=== PATIENT | female | born 1940 | race Caucasian/White ===

== ENCOUNTER 2017-06-03 10:36 | Outpatient (CLI) | payer MEDICARE, OTHER ==
--- NOTE | 2017-06-03 14:56 | ULT ---
RENAL SONOGRAM 06/03/2017 HISTORY: Urinary tract infection, acute cystitis, urinary hesitancy. FINDINGS: The kidneys demonstrate a normal sonographic appearance bilaterally without evidence of renal mass, calculus, or hydronephrosis. The right kidney measures 9.5 cm x 3.3 cm, with the left kidney measuring 9.9 cm x 4.2 cm. Urinary bladder has a normal sonographic appearance. Urinary bladder volume is 100.9 mL. IMPRESSION: Normal-appearing bilateral kidneys without evidence of hydronephrosis. POS: CELESTINOH
== END 2017-06-03 10:37 | disposition home or self-care (01) ==
LOC: ULT 10:36
PROVIDERS: ATTEND Urology
DX: N30.00 Acute cystitis without hematuria (principal); R39.11 Hesitancy of micturition; Z87.440 Personal history of urinary (tract) infections
CPT/HCPCS: 76770

== ENCOUNTER 2017-09-23 15:12 | Outpatient (CLI) | payer MEDICARE ==
--- NOTE | 2017-09-23 15:37 | RAD ---
CHEST PA AND LATERAL: History: 77-year-old female with dyspnea. Comparison: 11-19-16 FINDINGS: Heart size is within normal limits. Post underlying sternotomy. Scattered interstitial linear and ret icular nodular parenchymal changes in the upper lung zones with some apical pleural thickening as wel l as in the lower lung zones with some scarring in the region of the right middle lobe. There is some hyperinflation and overall stable chronic changes. IMPRESSION: Hyperinflation and chronic lung changes bilaterally. Atherosclerosis of the aorta with ectasia. No ev idence for acute new process. POS: OFF
== END 2017-09-23 15:13 | disposition home or self-care (01) ==
LOC: RAD 15:12
PROVIDERS: ATTEND Internal Medicine Pulmonary Disease
DX: R06.00 Dyspnea, unspecified (principal); R91.8 Other nonspecific abnormal finding of lung field; I70.0 Atherosclerosis of aorta; I77.819 Aortic ectasia, unspecified site
CPT/HCPCS: 71046

== ENCOUNTER 2017-11-06 13:47 | Outpatient (CLI) | payer MEDICARE | END 2017-11-06 13:48 | disposition home or self-care (01) | LOC: BICRAD 13:47 | PROVIDERS: ATTEND Internal Medicine | DX: R06.02 Shortness of breath; R05 Cough | CPT/HCPCS: 71046 ==

== ENCOUNTER 2017-11-28 12:40 | Outpatient (CLI) | payer MEDICARE ==
--- NOTE | 2017-11-28 13:37 | RAD ---
PA AND LATERAL VIEWS CHEST: Date: 11/28/17 HISTORY: Dyspnea. FINDINGS: Comparison made with exam of 09/23/17. Changes of median sternotomy are again seen. The heart size is normal. The aorta is tortuous. The pepe gs are expanded with stable chronic changes. No focal areas of consolidation, pneumothorax, or pleura l effusions are noted. There are degenerative changes in the spine. IMPRESSION: Stable exam. No acute process. POS: C
== END 2017-11-28 12:41 | disposition home or self-care (01) ==
LOC: RAD 12:40
PROVIDERS: ATTEND Internal Medicine Pulmonary Disease
DX: R06.00 Dyspnea, unspecified (principal)
CPT/HCPCS: 71046

== ENCOUNTER 2018-02-13 07:19 | Outpatient (CLI) | payer MEDICARE | END 2018-02-13 07:20 | disposition home or self-care (01) | LOC: BICULT 07:19 | PROVIDERS: ATTEND Internal Medicine Gastroenterology | DX: K74.3 Primary biliary cirrhosis (principal); K59.00 Constipation, unspecified; R63.4 Abnormal weight loss; R14.3 Flatulence | CPT/HCPCS: 76705 ==

== ENCOUNTER 2018-02-13 08:00 | Outpatient (CLI) | payer MEDICARE | END 2018-02-13 08:01 | disposition home or self-care (01) | LOC: BICMAMMO 08:00 | PROVIDERS: ATTEND Internal Medicine | DX: Z12.31 Encounter for screening mammogram for malignant neoplasm of breast (principal); N64.89 Other specified disorders of breast | CPT/HCPCS: 77063; 77067 ==

== ENCOUNTER 2018-02-19 09:36 | Outpatient (CLI) | payer MEDICARE ==
[2018-02-19] MEDS ORDERED: Iopamidol 370 76% 100 ML VIAL ONE (12:53)
[2018-02-21 15:07] LABS: Estimated GFR-MDRD - POC Greater than 90
== END 2018-02-19 09:37 | disposition home or self-care (01) ==
LOC: BICCT 09:36
PROVIDERS: ATTEND Internal Medicine Gastroenterology
DX: K74.3 Primary biliary cirrhosis (principal); R63.4 Abnormal weight loss; K59.00 Constipation, unspecified; R14.3 Flatulence
CPT/HCPCS: 74177; 82565

== ENCOUNTER 2018-02-20 13:36 | Outpatient (CLI) | payer MEDICARE | END 2018-02-20 13:37 | disposition home or self-care (01) | LOC: BICMAMMO 13:36 | PROVIDERS: ATTEND Internal Medicine | DX: N64.89 Other specified disorders of breast (principal) | CPT/HCPCS: 77065; G0279 ==

== ENCOUNTER 2018-03-05 14:21 | Outpatient (CLI) | payer MEDICARE | END 2018-03-05 14:22 | disposition home or self-care (01) | LOC: BICRAD 14:21 | PROVIDERS: ATTEND Internal Medicine | DX: R63.4 Abnormal weight loss (principal); I70.0 Atherosclerosis of aorta; J98.4 Other disorders of lung | CPT/HCPCS: 71046 ==

== ENCOUNTER 2018-05-30 16:39 | Inpatient (IN) | payer MEDICARE, OTHER ==
--- NOTE | 2018-05-30 17:44 | CT ---
CT BRAIN WITHOUT CONTRAST: Date: 05/30/18 HISTORY: Trauma. Fall. COMPARISON: None. FINDINGS: Right frontal forehead superficial soft tissue contusion. No acute hemorrhage or infarct. No midline shift or mass effect. The underlying calvarium is intact. Prior maxillary sinus surgery. IMPRESSION: Right forehead soft tissue contusion without acute post-traumatic intracranial sequelae. POS: CASEY
--- NOTE | 2018-05-30 17:49 | CT ---
CT CERVICAL SPINE WITHOUT CONTRAST: Date: 05/30/18 HISTORY: Trauma. COMPARISON: None. FINDINGS: The occipital condyles are intact. Odontoid process is intact. There are innumerable small little kalie encies throughout the medullary cavity of the cervical spine. There is a fusion of the right posterio r elements of C4-5. No acute fracture or malalignment. Low grade anterolisthesis of C4 over C5, degenerative in nature. There is abnormal peribronchial thickening in the upper lobes. There are opacities in both upper lobe s. No paraspinal muscle hematoma. Subtle very small lucencies through the ribs are visualized. IMPRESSION: 1. No acute displaced fracture of the cervical spine. 2. Innumerable small lucencies throughout the cervical vertebra, as well as involving the ribs. This can be seen with myelomatous process. Nonemergent myeloma workup is recommended. 3. Moderately advanced degenerative changes. 4. Extensive opacities in the upper lobes with peribronchial vascular cuffing, as well as peribronch ial wall thickening. This may be sequelae of chronic infection or bronchitis. A nonemergent CT of the chest is recommended. Atypical infection is also a possibility. POS: CASEY
--- NOTE | 2018-05-30 17:52 | CT ---
CT FACE WITHOUT CONTRAST: Date: 05/30/18 HISTORY: Fall. COMPARISON: None. FINDINGS: Superficial right forehead soft tissue contusion. Underlying calvarium is intact. The medial orbital persaud, lateral orbital persaud, orbital floors, and orbital roofs are intact. The zygoma and zygomatic arch are intact. Chronic maxillary osteitis. Nasal bones are intact. Moderate degenerative changes of the temporomandibular joints. The mandible is intact. No retrobulbar hematoma. There are numerous lucencies throughout the clivus. IMPRESSION: 1. No acute fracture of the face. 2. Right forehead superficial soft tissue contusion. Intact calvarium. 3. Extensive numerous lucencies throughout the clivus. This may be sequelae of severe osteopenia, al though an infiltrative process such as myeloma is a possibility. Nonemergent outpatient myeloma marilyn p recommended. POS: [facility]
--- NOTE | 2018-05-30 17:55 | RAD ---
PELVIS 1 VIEW: Date: 05/30/18 HISTORY: Fall. COMPARISON: None. FINDINGS: No fracture. No malalignment. Moderate degenerative changes. IMPRESSION: No acute fracture or malalignment. POS: CASEY
--- NOTE | 2018-05-30 17:56 | RAD ---
LEFT TIBIA AND FIBULA 2 VIEWS: Date: 05/30/18 HISTORY: Fall. COMPARISON: None. FINDINGS: There is mild soft tissue swelling. Multiple surgical clips. Mild medial meniscal chondrocalcinosis. IMPRESSION: No acute abnormality. POS: CASEY
[2018-05-30 18:24] LABS: Bilirubin Negative (Negative); Blood, Urine Small (Negative); Clarity CLOUDY (Clear); Glucose, Urine (Dipstick) Negative (Negative); Leukocyte Moderate (Negative); Nitrite Positive (Negative); Protein, Urine (Dipstick) Negative (Neg-Trace); Specific Gravity, Urine 1.016 (1.002-1.036); Urobilinogen 0.2 mg/dL (0.2-1.0); pH, Urine 6.5 (5.0-9.0)
[2018-05-30 18:26] LABS: Bacteria/HPF 2+ HPF (None Seen); Pathc Cast-AUWi Flag 2.18 (0-2.49); RBC/HPF 0-3 HPF (0-3); Squamous Epithelial 0-3 HPF (0-3)
[2018-05-30 18:58] LABS: #Lymphocytes 1.7 thou/uL (1.20-3.40); #Monocytes 0.9 thou/uL (0.11-0.59); #Neutrophils 13.7 thou/uL (1.40-6.50); %Basophils 0.3 % (0.0-1.0); %Eosinophils 0.2 % (0.0-10.0); %Lymphocytes 10.1 % (21.0-51.0); %Monocytes 5.6 % (0.0-10.0); %Neutrophils 83.8 % (42.0-75.0); Hemoglobin 12.7 g/dL (12.0-16.0); Mean Corpuscular HGB CONC 31.6 g/dL (32.0-36.0); Mean Corpuscular Hemoglobin 27.6 pg (27.0-31.0); Mean Corpuscular Volume 87.5 fL (78.0-98.0); Mean Platelet Volume 6.2 fL (7.4-10.4); Platelet Count 387 thou/uL (130-400); Red Blood Cell (RBC) Count 4.61 mill/uL (4.20-5.40); White Blood Cell (WBC) Count 16.4 thou/uL (4.8-10.8)
[2018-05-30 19:11] LABS: ALT (SGPT) 17 U/L (8-55); AST (SGOT) 35 U/L (5-34); Albumin 3.8 g/dL (3.4-4.8); Alkaline Phosphatase 133 U/L (40-150); Anion Gap 15 mmol/L (10-20); BUN (Urea Nitrogen) 13 mg/dL (9.8-20.1); Bilirubin, Total 0.4 mg/dL (0.2-1.2); Calc. Creatinine Clearance 0 mL/min (70-130); Calcium 9.9 mg/dL (7.8-10.44); Carbon Dioxide 24 mmol/L (23-31); Chloride 98 mmol/L (98-107); Estimated GFR-MDRD 73; Globulin 3.2 g/dL (2.4-3.5); Glucose 103 mg/dL (83-110); Potassium 4.5 mmol/L (3.5-5.1); Sodium 132 mmol/L (136-145)
[2018-05-30 19:24] LABS: CKMB 13.5 ng/mL (0-6.6); Troponin I 1.094 ng/mL (< 0.028)
[2018-05-30] MEDS ORDERED: cefTRIAXone\\ROCEPHIN 2 GM VIAL ONE (19:29)
[2018-05-30] MEDS ORDERED: Aspirin 325 MG TAB ONE (19:51)
[2018-05-30 22:41] LABS: Troponin I 2.287 ng/mL (< 0.028)
[2018-05-30] MEDS ORDERED: Acetaminophen 500 MG TAB PO PRN ×2 (23:19→23:51)
[2018-05-30] MEDS ORDERED: Enoxaparin Sodium 60 MG/0.6 ML SYRINGE SC SCH (23:30)
[2018-05-30] MEDS ORDERED: Nitroglycerin 0.4 MG TAB (25 Tab Bottle) SL PRN (23:51)
[2018-05-30] MEDS ORDERED: Ondansetron PF 4 MG/2 ML Vial IVP PRN (23:51)
[2018-05-30] MEDS ORDERED: Ondansetron ODT 4 MG TAB PO PRN (23:51)
[2018-05-30] MEDS ORDERED: hydrALAZINE 20 MG/ML VIAL SLOW IVP PRN (23:51)
--- NOTE | 2018-05-31 02:38 | HP ---
DATE OF ADMISSION: 05/30/2018 PRIMARY CARE PROVIDER: Dr. Zack Carlson. CHIEF COMPLAINT: Fall. HISTORY OF PRESENT ILLNESS: This is a 78-year-old female who presented to [facility] Emergency Department after sustaining a fall at home. The patient states she was navigating with using her rolling walker when it became hung between the doorway of her bathroom, causing her to fal l. The patient states she struck her forehead on the floor and landed face down. The patient states she was unable to get off the floor after multiple attempts. The patient's sister apparently had a welfare check for her and found her on the floor notifying EMS personnel. The patient relates she almendarez d a recent fall approximately 4-5 days prior to this evaluation while attempting to navigate down to a tree limb in her yard. The patient does states she uses a rolling walker for ambulation and lives independently; however, her daughter does live nearby and her sister lives in [place], [place]. The pat ient initially complained of left hip pain; however, initial radiographs in the emergency room were u nremarkable. The patient denies any specific loss of consciousness, fever, chills, or chest pain. I n the emergency room, the patient underwent general evaluation including CT of the brain, showing no acute intracranial process. Metabolic screening which did show evidence of potential urinary tract i nfection and patient was also noted with increasing trend of troponin I suggestive of non-ST elevatio n myocardial infarction. The patient received IV Rocephin, aspirin 325 mg in the emergency room and was transferred to the telemetry unit for further evaluation. PAST MEDICAL HISTORY: 1. History of non-ST elevation myocardial infarction. 2. History of pneumonia. 3. Coronary artery disease, status post coronary artery bypass grafting. 4. Dyslipidemia. 5. Hypothyroidism. 6. Irritable bowel syndrome. 7. Deconditioning with multiple falls. PAST SURGICAL HISTORY: 1. Status post sinus surgery. 2. Status post coronary artery bypass grafting x2. 3. Status post hysterectomy. 4. Status post left finger surgery. 5. Status post spinal surgery. CURRENT MEDICATIONS: 1. Aspirin 81 mg 1 tab p.o. daily. 2. Protonix 40 mg p.o. daily. 3. MiraLax 17 grams p.o. daily. 4. Flomax 0.4 mg p.o. daily. 5. [place] thyroid 120 mg p.o. daily. 6. Ursodiol 300 mg 2-3 capsules p.o. daily. ALLERGIES: STATINS and SULFA. FAMILY HISTORY: No inheritable diseases per patient report. SOCIAL HISTORY: Patient resides independently in the [place], [place] area. Ambulates with use of rolli Novalux walker. Multiple falls. No current alcohol, tobacco, or illicit drug use. REVIEW OF SYSTEMS: The following complete review of systems was negative, unless otherwise mentioned in the HPI or below: Constitutional: Weight loss or gain, ability to conduct usual activities. Sk in: Rash, itching. Eyes: Double vision, pain. ENT/Mouth: Nose bleeding, neck stiffness, pain, te nderness. Cardiovascular: Palpitations, dyspnea on exertion, orthopnea. Respiratory: Shortness of breath, wheezing, cough, hemoptysis, fever or night sweats. Gastrointestinal: Poor appetite, abdom inal pain, heartburn, nausea, vomiting, constipation, or diarrhea. Genitourinary: Urgency, frequenc y, dysuria, nocturia. Musculoskeletal: Pain, swelling. Neurologic/Psychiatric: Anxiety, depressio n. Allergy/Immunologic: Skin rash, bleeding tendency. PHYSICAL EXAMINATION: VITAL SIGNS: On admission, blood pressure 108/60, pulse 71, respiratory rate 14, temperature 98.6 de grees Fahrenheit, O2 saturation 98% on room air. GENERAL APPEARANCE: This is a 78-year-old female, alert and responsive, in no acute distre ss. HEENT: Pupils are equal, round, and reactive to light and accommodation. Extraocular muscles are in tact. No scleral icterus, no conjunctival injection. Nares patent. OP is clear. Forehead region w ith ecchymosis and erythema consistent with contusion. NECK: Supple. No cervical adenopathy, no thyromegaly, no carotid bruits, no JVD noted. Cervical sp ine with full active and passive range of motion. No meningeal signs noted. CHEST: Lungs are clear to auscultation bilaterally. CARDIOVASCULAR: S1, S2, without noted murmur, rub, or gallop. ABDOMEN: Rounded, soft, nontender, nondistended. Bowel sounds are positive in all four quadrants. There is no hepatosplenomegaly, no abdominal bruits, no rebound or guarding appreciated. EXTREMITIES: Warm and dry with fair turgor. Contusion noted in the left patella. Pulses are palpab le distally at the dorsalis pedis, posterior tibial, and popliteal arteries bilaterally. Capillary r efill less than 2 seconds. NEUROLOGIC: Cranial nerves II through XII are grossly intact. No focal or lateralizing signs apprec iated. The patient not observed ambulatory during this exam. PERTINENT LABORATORY AND X-RAY FINDINGS: Sodium 132, potassium 4.5, chloride 98, CO2 of 24, BUN 13, creatinine 0.77, glucose 103, calcium 9.9, AST 35, ALT 17, alkaline phosphatase 133, troponin I range d between 1.094-2.29. CBC showed a white blood cell count of 16.4, hemoglobin 13, hematocrit 40, maria del rosario telet count 387,000 with 84% neutrophils. Urinalysis positive for nitrites and leukocyte esterase wi th 7-10 wbc's per high power field. CT of cervical spine dated 05/30/2018, showed no acute fracture or dislocation. Innumerable small lucencies throughout the cervical vertebra. Degenerative joint di sease noted. CT of the facial bones dated 05/30/2018, showed no acute fracture of the face. Right f orehead soft tissue contusion. Pelvic radiographs dated 05/30/2018, showed no acute fracture. Two v iews of the left tibia/fibula dated 05/30/2018, showed no acute fracture. CT of the brain without co ntrast dated 05/30/2018, showed no acute intracranial process. EKG dated 05/30/2018 by my interpreta tilakesha shows a sinus mechanism with heart rates in the 70s. Normal R-wave progression noted in the pre cordial leads. Normal axis. No acute ST-T wave changes noted. ASSESSMENT AND PLAN: 1. Non-ST elevation myocardial infarction. The patient will be admitted to the telemetry unit. We will continue aspirin 325 mg p.o. daily. Lovenox 60 mg subcutaneously x1. Consult Cardiology Servic e in the a.m. Check fasting lipid profile. 2. Urinary tract infection. Suspected given initial urinalysis results. Urine culture pending. Co ntinue Rocephin 1 gram IV q.24 hours. 3. Mechanical fall. General fall risk precautions. PT evaluation for functional assessment. Case management consult for [facility] facility options. 4. Hypothyroidism. Resume home regimen of [place] thyroid 120 mg p.o. daily. 5. Prophylaxis. Sequential compression devices while in bed. Pepcid 20 mg p.o. b.i.d. PT evaluati on pending. 6. Code status is FULL. Surrogate medical decision maker is the patient's daughter.
[2018-05-31 02:42] LABS: Troponin I 2.963 ng/mL (< 0.028)
[2018-05-31 06:04] LABS: Anion Gap 14 mmol/L (10-20); BUN (Urea Nitrogen) 13 mg/dL (9.8-20.1); Calc. Creatinine Clearance 59 mL/min (70-130); Calcium 9.5 mg/dL (7.8-10.44); Carbon Dioxide 23 mmol/L (23-31); Cardiac Risk 2.8 (Less than 4.5); Chloride 100 mmol/L (98-107); Cholesterol 148 mg/dl (< 200 Desired); Estimated GFR-MDRD 72; Glucose 118 mg/dL (83-110); HDL Cholesterol 53 mg/dL (>60 Neg Risk); LDL Cholesterol, Calculated 86 mg/dL; Potassium 3.7 mmol/L (3.5-5.1); Sodium 133 mmol/L (136-145); Triglycerides 45 mg/dL (Less than 150)
[2018-05-31] MEDS: Thyroid 60 MG TAB PO SCH (06:19)
[2018-05-31 06:22] LABS: Band 7 % (5-11); Hemoglobin 10.8 g/dL (12.0-16.0); Lymphocytes 27 % (21-51); MDiff Complete? YES; Mean Corpuscular HGB CONC 30.9 g/dL (32.0-36.0); Mean Corpuscular Hemoglobin 26.9 pg (27.0-31.0); Mean Corpuscular Volume 87.1 fL (78.0-98.0); Mean Platelet Volume 7.2 fL (7.4-10.4); Monocytes 6 % (0-10); Neutrophil 60 % (42-75); Platelet Count 345 thou/uL (130-400); Red Blood Cell (RBC) Count 4.02 mill/uL (4.20-5.40); White Blood Cell (WBC) Count 12.2 thou/uL (4.8-10.8)
[2018-05-31 10:25] LABS: Platelet Count 325 thou/uL (130-400)
[2018-05-31] MEDS: traMADol HCl 50 MG TAB PO PRN ×2 (11:53→20:21)
[2018-05-31] MEDS: Famotidine 20 MG TAB PO SCH ×2 (14:31→20:21)
[2018-05-31] MEDS: Ursodiol 300 MG CAP PO SCH (15:40)
[2018-05-31] MEDS: Enoxaparin Sodium 60 MG/0.6 ML SYRINGE SC SCH ×2 (15:41→20:24)
[2018-05-31] MEDS: Aspirin 325 mg Enteric Coated Tablet PO SCH (15:41)
[2018-05-31] MEDS: Tamsulosin HCl 0.4 MG CAP PO SCH (15:41)
[2018-05-31] MEDS: Polyethylene Glycol 3350 17 GM Packet PO SCH (15:50)
--- NOTE | 2018-05-31 17:24 | PDOC.PN ---
- Subjective Encounter Start Date: 05/31/18 Encounter Start Time: 10:00 Subjective: pt up in bed wants to eat - Objective Resuscitation Status: Resuscitation Status FULL:Full Resuscitation Vital Signs & Weight: Vital Signs (12 hours) Temp Pulse Resp BP Pulse Ox 05/31/18 15:55 98.4 F 78 17 123/66 98 05/31/18 11:59 97.9 F 58 L 18 145/66 H 99 05/31/18 08:17 98.1 F 57 L 17 121/58 L 98 Weight Admit Weight 134 lb Weight 134 lb 0.657 oz I&O: 05/30/18 05/31/18 06/01/18 06:59 06:59 06:59 Intake Total 350 Output Total 325 Balance 25 Result Diagrams: 05/31/18 09:50 05/31/18 09:50 Phys Exam - Physical Examination Respiratory: no wheezing, no rales, no rhonchi, wheezing present, clear to auscultation bilateral Cardiovascular: RRR, no significant murmur, no rub, gallop, irregular Gastrointestinal: soft, non-tender, no distention, positive bowel sounds Musculoskeletal: no edema, pulses present, edema present Dx/Plan (1) NSTEMI (non-ST elevated myocardial infarction) Code(s): I21.4 - NON-ST ELEVATION (NSTEMI) MYOCARDIAL INFARCTION Status: Suspected (2) Fall Code(s): W19.XXXA - UNSPECIFIED FALL, INITIAL ENCOUNTER Status: Acute (3) Hypertension Code(s): I10 - ESSENTIAL (PRIMARY) HYPERTENSION Status: Acute (4) Hypothyroid Code(s): E03.9 - HYPOTHYROIDISM, UNSPECIFIED Status: Chronic - Plan pt has no chest pain but her trops are high -: will continue lovonox -: cardiology consulted * . Review of Systems - Review of Systems ENT: negative: Ear Pain, Ear Discharge, Nose Pain, Nose Discharge, Nose Congestion, Mouth Pain, Mouth Swelling, Throat Pain, Throat Swelling, Other Respiratory: negative: Cough, Dry, Shortness of Breath, Hemoptysis, SOB with Excertion, Pleuritic Pain, Sputum, Wheezing Cardiovascular: negative: chest pain, palpitations, orthopnea, paroxysmal nocturnal dyspnea, edema, light headedness, other Gastrointestinal: negative: Nausea, Vomiting, Abdominal Pain, Diarrhea, Constipation, Melena, Hematochezia, Other - Medications/Allergies Allergies/Adverse Reactions: Allergies Allergy/AdvReac Type Severity Reaction Status Date / Time Rfaxcpt-Yvg-Kas Reductase Allergy Verified 11/27/13 12:08 Inhibitor Sulfa (Sulfonamide Allergy Hives Verified 11/27/13 12:08 Antibiotics) Medications: Current Medications Acetaminophen (Tylenol) 1,000 mg PO Q6H PRN PRN Reason: Mild Pain (1-3) Last Admin: 05/31/18 06:19 Dose: 1,000 mg Aspirin (Ecotrin) 325 mg PO DAILY [facility] Last Admin: 05/31/18 15:41 Dose: 325 mg Enoxaparin Sodium (Lovenox) 60 mg SC 0900,2100 [facility] Last Admin: 05/31/18 15:41 Dose: 60 mg Famotidine (Pepcid) 20 mg PO BID [facility] Last Admin: 05/31/18 14:31 Dose: Not Given Hydralazine HCl (Apresoline) 10 mg SLOW IVP Q4H PRN PRN Reason: SBP > 180 and HR < 70 Ceftriaxone Sodium 1 gm/ (Sodium Chloride) 100 mls @ 200 mls/hr IVPB 2100 [facility] Nitroglycerin (Nitrostat) 0.4 mg SL Q5MIN PRN PRN Reason: Chest Pain Ondansetron HCl (Zofran Odt) 4 mg PO Q6H PRN PRN Reason: Nausea/Vomiting Ondansetron HCl (Zofran) 4 mg IVP Q6H PRN PRN Reason: Nausea/Vomiting Polyethylene Glycol (Miralax) 17 gm PO DAILY [facility] Last Admin: 05/31/18 15:50 Dose: Not Given Tamsulosin HCl (Flomax) 0.4 mg PO DAILY [facility] Last Admin: 05/31/18 15:41 Dose: 0.4 mg Thyroid ([place] Thyroid) 120 mg PO 0600 [facility] Last Admin: 05/31/18 06:19 Dose: 120 mg Tramadol HCl (Ultram) 50 mg PO Q6H PRN PRN Reason: Mild-Moderate Pain (1-5) Last Admin: 05/31/18 11:53 Dose: 50 mg Ursodiol (Actigal) 600 mg PO DAILY [facility] Last Admin: 05/31/18 15:40 Dose: 600 mg
[2018-05-31] MEDS: cefTRIAXone\\ROCEPHIN 1 GM in Sodium Chloride 0.9% 100 ML IVPB SCH (20:23)
--- NOTE | 2018-06-01 00:22 | CON ---
DATE OF CONSULTATION: 05/31/2018 HISTORY OF PRESENT ILLNESS: Charlotte Negro is a 78-year-old white female who is followed with Dr. Mcrae for many years. In 12/2001, she underwent off pump CABG x2 with SCHULTZ to the LAD and saphenous vein graft to the ramus at [facility]. In 12/2013, she underwent repeat catheterization. There was a 90% mid LAD lesion, 90% lesion in obtuse marginal and 40% ostial lesion of the right coronary artery. The graft to the ramus was patent and the SCHULTZ to the LAD was patent. In 07/2016, she was admitted with pneumonia and had intermittent atrial fibrillation as well as troponin I is up to 0.4. She was last seen in the office in 01/2018, complained of palpitations. It was recommended that she wear an event monitor; however, she declined. She also declined repeat stress testing. In the past, she has also declined anticoagulation. She is now hospitalized after sustaining a fall at home yesterday. She states she got tripped on her clothes after getting up from going to the bathroom with her walker. She apparently fell forward striking her forehead on the floor. She also states that she struck the left side of her chest. She denies any loss of consciousness. She did have elevated troponin I and Cardiology consultation was requested. PAST MEDICAL HISTORY: History of pneumonia with atrial fibrillation, coronary artery disease, hyperlipidemia, hypothyroidism, irritable bowel syndrome, falls in the past. OPERATIONS: Sinus surgery, hysterectomy, left finger surgery, back surgery, and CABG x2. Repeat catheterization in 12/2013 revealed grafts to be patent. MEDICATIONS: Aspirin 81 daily, Protonix 40 daily, MiraLax 17 daily, Flomax 0.4 daily, [place] thyroid 120 mg daily, Actigall 2-3 capsules daily. ALLERGIES: STATINS and SULFA DRUGS. SOCIAL HISTORY: She does not smoke or drink. She states she can be moving to [place] soon. FAMILY HISTORY: Unremarkable. REVIEW OF SYSTEMS: Twelve-point review of systems otherwise unremarkable. PHYSICAL EXAMINATION: VITAL SIGNS: Blood pressure 123/66, pulse of 78. HEENT: PERRL. NECK: Supple. LUNGS: Chest is clear. CARDIAC: S1, S2 normal, without any S3, S4 or murmurs. ABDOMEN: Normal bowel sounds, without tenderness, organomegaly. EXTREMITIES: Revealed no clubbing, cyanosis or edema. NEUROLOGIC: Grossly intact. SKIN: Warm and dry. MUSCULOSKELETAL: Reveals palpable left chest tenderness. LABORATORY DATA: EKG revealed normal sinus rhythm with nonspecific T-wave changes. Troponin I is up to 2.963. Cholesterol 148, triglycerides 45, HDL 53 , LDL 86. TSH is elevated at 8.6089. Sodium 133, potassium 3.7, chloride 100, carbon dioxide 23, BUN 13, creatinine 0.78. CK-MB 13.5. Total CK 167. Hemoglobin 12.0, hematocrit 37.6, platelets 325,000. Echocardiogram revealed ejection fraction of 55%-60%, evidence of diastolic dysfunction, mitral annular calcification, mild mitral regurgitation, aortic valvular sclerosis and mild tricuspid regurgitation. IMPRESSION: 1. Fall at home with previous falls. 2. Elevated troponin I. From the location that she landed on the left side of her chest, certainly could be due to a myocardial contusion. She certainly may also have had a non-ST elevation myocardial infarction. 3. Status post coronary artery bypass graft x2 in 2001 at [facility]. In 12/2013, both grafts were patent. 4. History of atrial fibrillation with pneumonia, declining anticoagulation in the past. She also has had complaint of palpitations last time she was seen in the office and declined wearing the monitor. 5. Hypertension. 6. Hyperlipidemia. 7. Hypothyroidism. 8. Irritable bowel syndrome. PLAN: The situation was discussed with Ms. Negro. This certainly may have been a myocardial contusion or a non-STEMI. The only way probably to conclusively decipher between the two would be to undergo cardiac catheterization. We will further discuss this. YVES
[2018-06-01] MEDS: Thyroid 60 MG TAB PO SCH (05:04)
[2018-06-01] MEDS: Ursodiol 300 MG CAP PO SCH (09:11)
[2018-06-01] MEDS: Aspirin 325 mg Enteric Coated Tablet PO SCH (09:11)
[2018-06-01] MEDS: Tamsulosin HCl 0.4 MG CAP PO SCH (09:11)
[2018-06-01] MEDS: traMADol HCl 50 MG TAB PO PRN (09:12)
[2018-06-01] MEDS: Polyethylene Glycol 3350 17 GM Packet PO SCH (09:13)
[2018-06-01] MEDS: Famotidine 20 MG TAB PO SCH ×2 (09:13→20:46)
[2018-06-01] MEDS: Enoxaparin Sodium 60 MG/0.6 ML SYRINGE SC SCH (09:13)
--- NOTE | 2018-06-01 15:33 | PDOC.PN ---
- Subjective Encounter Start Date: 06/01/18 Encounter Start Time: 11:15 Subjective: pt up in bed no complains - Objective Resuscitation Status: Resuscitation Status FULL:Full Resuscitation Vital Signs & Weight: Vital Signs (12 hours) Temp Pulse Pulse Pulse Resp BP BP 06/01/18 13:12 71 68 145/80 H 135/71 06/01/18 12:30 99.2 F 71 20 06/01/18 07:44 06/01/18 07:28 98.5 F 68 20 06/01/18 04:00 98.6 F 63 20 BP Pulse Ox 06/01/18 13:12 06/01/18 12:30 119/63 92 L 06/01/18 07:44 98 06/01/18 07:28 137/71 98 06/01/18 04:00 117/60 95 Weight Admit Weight 134 lb Weight 136 lb 0.403 oz I&O: 05/31/18 06/01/18 06/02/18 06:59 06:59 06:59 Intake Total 1370 Output Total 1375 Balance -5 Result Diagrams: 05/31/18 09:50 05/31/18 09:50 Dx/Plan (1) NSTEMI (non-ST elevated myocardial infarction) Code(s): I21.4 - NON-ST ELEVATION (NSTEMI) MYOCARDIAL INFARCTION Status: Suspected (2) Fall Code(s): W19.XXXA - UNSPECIFIED FALL, INITIAL ENCOUNTER Status: Acute (3) Hypertension Code(s): I10 - ESSENTIAL (PRIMARY) HYPERTENSION Status: Acute (4) Hypothyroid Code(s): E03.9 - HYPOTHYROIDISM, UNSPECIFIED Status: Chronic - Plan possible cath in am -: pt on lovonox -: will continue ceftriaxone for possible uti cx indicated ecoli -: PT to see pt due to falls -: will order vit b12 and vit D * . Review of Systems - Review of Systems Respiratory: negative: Cough, Dry, Shortness of Breath, Hemoptysis, SOB with Excertion, Pleuritic Pain, Sputum, Wheezing Cardiovascular: negative: chest pain, palpitations, orthopnea, paroxysmal nocturnal dyspnea, edema, light headedness, other Gastrointestinal: negative: Nausea, Vomiting, Abdominal Pain, Diarrhea, Constipation, Melena, Hematochezia, Other Genitourinary: negative: Dysuria, Frequency, Incontinence, Hematuria, Retention , Other - Medications/Allergies Allergies/Adverse Reactions: Allergies Allergy/AdvReac Type Severity Reaction Status Date / Time Wurbzht-Vlv-Iqm Reductase Allergy Verified 11/27/13 12:08 Inhibitor Sulfa (Sulfonamide Allergy Hives Verified 11/27/13 12:08 Antibiotics) Medications: Current Medications Acetaminophen (Tylenol) 1,000 mg PO Q6H PRN PRN Reason: Mild Pain (1-3) Last Admin: 05/31/18 06:19 Dose: 1,000 mg Aspirin (Ecotrin) 325 mg PO DAILY [facility] Last Admin: 06/01/18 09:11 Dose: 325 mg Famotidine (Pepcid) 20 mg PO BID [facility] Last Admin: 06/01/18 09:13 Dose: 20 mg Hydralazine HCl (Apresoline) 10 mg SLOW IVP Q4H PRN PRN Reason: SBP > 180 and HR < 70 Ceftriaxone Sodium 1 gm/ (Sodium Chloride) 100 mls @ 200 mls/hr IVPB 2100 [facility] Last Admin: 05/31/18 20:23 Dose: 100 mls Nitroglycerin (Nitrostat) 0.4 mg SL Q5MIN PRN PRN Reason: Chest Pain Ondansetron HCl (Zofran Odt) 4 mg PO Q6H PRN PRN Reason: Nausea/Vomiting Ondansetron HCl (Zofran) 4 mg IVP Q6H PRN PRN Reason: Nausea/Vomiting Polyethylene Glycol (Miralax) 17 gm PO DAILY [facility] Last Admin: 06/01/18 09:13 Dose: 17 gm Tamsulosin HCl (Flomax) 0.4 mg PO DAILY [facility] Last Admin: 06/01/18 09:11 Dose: 0.4 mg Thyroid ([place] Thyroid) 120 mg PO 0600 [facility] Last Admin: 06/01/18 05:04 Dose: 120 mg Tramadol HCl (Ultram) 50 mg PO Q6H PRN PRN Reason: Mild-Moderate Pain (1-5) Last Admin: 06/01/18 09:12 Dose: 50 mg Ursodiol (Actigal) 600 mg PO DAILY [facility] Last Admin: 06/01/18 09:11 Dose: 600 mg
[2018-06-01] MEDS: cefTRIAXone\\ROCEPHIN 1 GM in Sodium Chloride 0.9% 100 ML IVPB SCH (20:46)
[2018-06-02] MEDS: traMADol HCl 50 MG TAB PO PRN (02:29)
[2018-06-02] MEDS: Famotidine 20 MG TAB PO SCH ×2 (05:31→19:56)
[2018-06-02] MEDS: Ursodiol 300 MG CAP PO SCH (05:32)
[2018-06-02] MEDS: Tamsulosin HCl 0.4 MG CAP PO SCH (05:32)
[2018-06-02] MEDS: Thyroid 60 MG TAB PO SCH (05:32)
[2018-06-02] MEDS: Polyethylene Glycol 3350 17 GM Packet PO SCH (05:32)
[2018-06-02] MEDS: Aspirin 325 mg Enteric Coated Tablet PO SCH (05:32)
[2018-06-02] MEDS ORDERED: Communication Order-Pharmacy FS SCH (07:30)
[2018-06-02] MEDS ORDERED: Sodium Chloride 0.9% 1,000 ML IV SCH ×2 (07:30→11:39)
[2018-06-02] MEDS ORDERED: Heparin 10,000 UNITS/1 ML VIAL ONE (08:47)
[2018-06-02] MEDS ORDERED: Lidocaine 1% (PF) 30 ML VIAL ONE (08:47)
[2018-06-02] MEDS ORDERED: Fentanyl 100 MCG/2 ML VIAL ONE (09:33)
[2018-06-02] MEDS ORDERED: Midazolam HCl 2 mg/2 ml Vial ONE (09:33)
[2018-06-02] MEDS ORDERED: Clopidogrel Bisulfate 300 MG TAB ONE (10:44)
[2018-06-02] MEDS ORDERED: Bivalirudin 250 MG VIAL ONE (10:44)
[2018-06-02] MEDS ORDERED: Nitroglycerin 100MG/250ML BOT 250 ML ONE (10:45)
[2018-06-02] MEDS ORDERED: DOPamine 400 MG/D5W 250 ML 250 ML ONE (10:50)
[2018-06-02 11:34] LABS: Hemoglobin 11.3 g/dL (12.0-16.0); Platelet Count 313 thou/uL (130-400)
[2018-06-02 11:45] LABS: Calc. Creatinine Clearance 75 mL/min (70-130); Estimated GFR-MDRD Greater than 90
[2018-06-02] MEDS ORDERED: DOPamine 400 MG/D5W 250 ML 250 ML IVPB SCH (11:45)
[2018-06-02] MEDS ORDERED: Iopamidol 370 76% 100 ML VIAL ONE (11:55)
[2018-06-02] MEDS ORDERED: traMADol HCl 50 MG TAB ONE (12:02)
[2018-06-02] MEDS ORDERED: Sodium Chloride 0.9% 10 ML ONE ×2 (13:14→14:50)
--- NOTE | 2018-06-02 15:11 | EKG ---
Test Reason : POST STENTS X 2 Blood Pressure : / mmHG Vent. Rate : 057 BPM Atrial Rate : 057 BPM P-R Int : 162 ms QRS Dur : 076 ms QT Int : 442 ms P-R-T Axes : 069 022 060 degrees QTc Int : 430 ms Sinus bradycardia Otherwise normal ECG No previous ECGs available Confirmed by FOX ALVAREZ ([id number]) on 06/02/2018 3:11:17 PM Referred By: JAMES Confirmed By:FOX ALVAREZ
--- NOTE | 2018-06-02 17:37 | ULT ---
CAROTID ULTRASOUND: HISTORY: Possible CVA. COMPARISON: None. TECHNIQUE: Zepeda-scale, color-flow, and Doppler imaging with spectral wave-form analysis was performed of the car otid and vertebral arteries. FINDINGS: RIGHT CAROTID: There is calcified plaque in the right carotid bifurcation and proximal internal villa tid artery. The peak systolic velocity of the common carotid artery is 54.4 cm per second. The peak systolic velocity of the internal carotid artery is 79.8 cm per second. The systolic ICA/CCA ratio is 1.5. LEFT CAROTID: There is calcified and noncalcified plaque in the left carotid bifurcation in the prox imal internal carotid artery. The peak systolic velocity of the common carotid artery is 74.6 cm per second. The peak systolic velocity of the internal carotid artery is 75.6 cm per second. Systolic ICA/CCA ratio is 1. Antegrade flow in the bilateral vertebral arteries. IMPRESSION: 1. No sonographic evidence of hemodynamically significant stenosis. 2. Calcified and noncalcified plaque in the bilateral internal carotid arteries, as described above. POS: CASEY
[2018-06-02] MEDS: cefTRIAXone\\ROCEPHIN 1 GM in Sodium Chloride 0.9% 100 ML IVPB SCH (19:56)
--- NOTE | 2018-06-02 20:50 | PDOC.PN ---
- Subjective Encounter Start Date: 06/02/18 Encounter Start Time: 20:45 Subjective: f/u for NSTEMI s/p ZAK placement to ostial RCA and proximal CX. Continues -: on ASA/Plavix. No current CP. Feels ok overall. - Objective Resuscitation Status: Resuscitation Status FULL:Full Resuscitation MAR Reviewed: Yes Vital Signs & Weight: Vital Signs (12 hours) Temp Pulse Resp BP BP Pulse Ox 06/02/18 16:45 97.5 F L 64 16 147/67 H 06/02/18 08:50 98.3 F 55 L 20 136/63 96 Weight Admit Weight 134 lb Weight 136 lb 0.403 oz I&O: 06/01/18 06/02/18 06/03/18 06:59 06:59 06:59 Intake Total 1370 1240 960 Output Total 1375 1225 1600 Balance -5 59 -293 Result Diagrams: 06/02/18 04:55 06/02/18 04:55 Additional Labs: Microbiology 05/30/18 18:19 Urine voided Urine Culture - Preliminary Pseudomonas aeruginosa Laboratory Tests 01/05/18 05/30/18 05/30/18 14:59 18:48 18:48 WBC 16.4 H Sodium Troponin I 1.094 H* Triglycerides Cholesterol LDL Cholesterol, Calc HDL Cholesterol Free T4 TSH 3rd Generation 1.3591 05/30/18 05/30/18 05/31/18 18:48 21:51 01:44 WBC Sodium 132 L Troponin I 2.287 H* Triglycerides 45 Cholesterol 148 LDL Cholesterol, Calc 86 HDL Cholesterol 53 Free T4 TSH 3rd Generation 05/31/18 05/31/18 05/31/18 01:44 01:44 01:46 WBC 12.2 H Sodium Troponin I 2.963 H* Triglycerides Cholesterol LDL Cholesterol, Calc HDL Cholesterol Free T4 TSH 3rd Generation 8.6089 H 05/31/18 17:47 WBC Sodium Troponin I Triglycerides Cholesterol LDL Cholesterol, Calc HDL Cholesterol Free T4 0.88 TSH 3rd Generation Radiology Reviewed by me: Yes (Carotid dopp - no hemodynamic significant stenosis) EKG Reviewed by me: Yes (Tele - SR in 60's) Phys Exam - Physical Examination Constitutional: NAD HEENT: PERRLA, sclera anicteric, oral pharynx no lesions Neck: no nodes, no JVD, supple, full ROM Respiratory: no wheezing, no rales, no rhonchi, clear to auscultation bilateral S1, S2 Cardiovascular: RRR, no significant murmur, no rub, gallop Gastrointestinal: soft, non-tender, no distention, positive bowel sounds Musculoskeletal: no edema, pulses present Neurological: normal sensation, moves all 4 limbs Psychiatric: A&O x 3 Skin: normal turgor, cap refill <2 seconds Dx/Plan (1) NSTEMI (non-ST elevated myocardial infarction) Code(s): I21.4 - NON-ST ELEVATION (NSTEMI) MYOCARDIAL INFARCTION Status: Acute Comment: s/p ZAK to RCA and CX, continue dual antiplatelet therapy (2) Pseudomonas urinary tract infection Code(s): N39.0 - URINARY TRACT INFECTION, SITE NOT SPECIFIED; B96.5 - PSEUDOMONAS (MALLEI) CAUSING DISEASES CLASSD ELSWHR Status: Acute Comment: Continue Rocephin pending final sensitivities (3) Hypertension Code(s): I10 - ESSENTIAL (PRIMARY) HYPERTENSION Status: Chronic Qualifiers: Hypertension type: essential hypertension Qualified Code(s): I10 - Essential (primary) hypertension Comment: Stable, start low-dose betablocker in next 24h (4) Fall Code(s): W19.XXXA - UNSPECIFIED FALL, INITIAL ENCOUNTER Status: Acute Comment: Mechanical fall, PT for evaluation, Rehab screening, fall risk precautions - Plan continue antibiotics, PT/OT, social human services assistants, out of bed/ambulate, DVT proph w/ SCDs Stable overall -: Continue ASA/Plavix -: Add Dougherty 3 FA's -: Low-dose beta-klaudia in next 24h -: AM lab: CMP, CBC * .
[2018-06-03 05:26] LABS: #Basophils 0.1 thou/uL (0.0-0.2); #Eosinphils 0.2 thou/uL (0.0-0.7); #Lymphocytes 1.8 thou/uL (1.20-3.40); #Monocytes 0.7 thou/uL (0.11-0.59); #Neutrophils 6.5 thou/uL (1.40-6.50); %Eosinophils 2.2 % (0.0-10.0); %Lymphocytes 19.3 % (21.0-51.0); %Monocytes 7.6 % (0.0-10.0); %Neutrophils 69.9 % (42.0-75.0); Hemoglobin 11.8 g/dL (12.0-16.0); Mean Corpuscular HGB CONC 32.1 g/dL (32.0-36.0); Mean Corpuscular Hemoglobin 27.6 pg (27.0-31.0); Mean Corpuscular Volume 86.1 fL (78.0-98.0); Mean Platelet Volume 6.9 fL (7.4-10.4); Platelet Count 350 thou/uL (130-400); RBC Distribution Width 13.9 % (11.5-14.5); Red Blood Cell (RBC) Count 4.25 mill/uL (4.20-5.40); White Blood Cell (WBC) Count 9.3 thou/uL (4.8-10.8)
[2018-06-03] MEDS: Thyroid 60 MG TAB PO SCH (05:28)
[2018-06-03 05:51] LABS: ALT (SGPT) 16 U/L (8-55); AST (SGOT) 35 U/L (5-34); Albumin 3.1 g/dL (3.4-4.8); Alkaline Phosphatase 92 U/L (40-150); Anion Gap 12 mmol/L (10-20); BUN (Urea Nitrogen) 9 mg/dL (9.8-20.1); Bilirubin, Total 0.3 mg/dL (0.2-1.2); Calc. Creatinine Clearance 71 mL/min (70-130); Calcium 9.4 mg/dL (7.8-10.44); Carbon Dioxide 24 mmol/L (23-31); Chloride 98 mmol/L (98-107); Estimated GFR-MDRD 87; Glucose 78 mg/dL (83-110); Potassium 4.3 mmol/L (3.5-5.1); Protein, Total 6.1 g/dL (6.0-8.3); Sodium 130 mmol/L (136-145)
[2018-06-03] MEDS: traMADol HCl 50 MG TAB PO PRN (06:37)
[2018-06-03] MEDS: Polyethylene Glycol 3350 17 GM Packet PO SCH (08:49)
[2018-06-03] MEDS: Ursodiol 300 MG CAP PO SCH (08:49)
[2018-06-03] MEDS: Tamsulosin HCl 0.4 MG CAP PO SCH (08:50)
[2018-06-03] MEDS: Famotidine 20 MG TAB PO SCH ×2 (08:50→20:20)
[2018-06-03] MEDS: Clopidogrel Bisulfate 75 MG TAB PO SCH (08:50)
[2018-06-03 12:12] VITALS: BMI 20.2
--- NOTE | 2018-06-03 12:52 | CON ---
DATE OF CONSULTATION: 06/03/2018 HISTORY: Charlotte Negro is a 78-year-old female who is well known to me who was admitted to the [facility] after she fell at home. She said she got lightheaded and dizzy and hit the back of her head. A CA T scan of the head was done which showed superficial bruising. She then complained of pain all over, elevated troponin, chest pain, chronic cough, chronic shortness of breath, but no fever or chills. She underwent cardiac catheterization by Cardiology, Dr. Bingham. Two new stents were placed in and she says she is feeling better this morning, less pain. She was scheduled to have a CT of her chest in the office because of ongoing recurrent aspiration pneumonia and bronchiectatic changes. PAST MEDICAL HISTORY: 1. Cirrhosis of the liver, nonalcoholic. 2. Hypothyroidism. 3. Irritable bowel syndrome. 4. Hyperlipidemia. 5. High cholesterol. 6. Chronic lung disease. 7. Bronchiectasis. PAST SURGICAL HISTORY: Hysterectomy, bypass, spinal surgery. ALCOHOL: None. TOBACCO: None. MEDICATIONS: At home Actigall, Thyroid 120, Flomax 0.4, Protonix 40, aspirin. ALLERGIES: SULFA. REVIEW OF SYSTEMS: Ten point negative. PHYSICAL EXAMINATION: VITAL SIGNS: Blood pressure is 150/70, sats 97% on room air, respiration 16, temperature 98, pulse 6 7. CHEST: Bilateral rhonchi and crackles. CARDIAC: Normal S1-S2. No gallops. ABDOMEN: Soft. No masses. LABORATORY: White count 9000, H&H 9 and 36, platelet count 350. Sodium 130. Sodium is growing Pseudomonas. IMPRESSION: 1. Chronic bronchitis. 2. Bronchiectasis. Abnormal x-ray. 3. Aspiration. 4. Chronic obstructive pulmonary disease. 5. Urinary tract infection and follow up with I's and O's. 4. Coronary artery disease status post stent. However, a CT is being ordered. Otherwise, I will switch her over to oral antibiotics, supportive ca re. This is a consultation note, 70 minutes, 50% spent in direct patient care.
--- NOTE | 2018-06-03 12:59 | EKG ---
Test Reason : Blood Pressure : / mmHG Vent. Rate : 066 BPM Atrial Rate : 066 BPM P-R Int : 152 ms QRS Dur : 080 ms QT Int : 414 ms P-R-T Axes : 072 039 077 degrees QTc Int : 434 ms Sinus rhythm with sinus arrhythmia with occasional Premature ectopic complexes Otherwise normal ECG Confirmed by FOX ALVAREZ ([id number]) on 06/03/2018 12:59:21 PM Referred By: JAMES Confirmed By:FOX ALVAREZ
--- NOTE | 2018-06-03 14:23 | CCL ---
CARDIAC CATHETERIZATION REPORT: Date: 06/02/18 PROCEDURE: Left heart catheterization, selective coronary arteriography, left ventriculography, coronary arteriography bypass graft angiography, SCHULTZ injection, intracoronary nitroglycerin, and stent placement in the ostial right coronary artery and in the proximal circumflex. INDICATION: Non-STEMI versus myocardial contusion. DESCRIPTION OF PROCEDURE: Patient was brought to cardiac crime laboratory analyst. The right groin was prepped and draped in usual fashion. 1% lidocaine was infiltrated. Versed 1 mg was given, as well as fentanyl 25 mg, for IV conscious sedation. A 6 Qatari sheath was placed into the right femoral artery and heparin 3000 units given. A 6 Qatari angulated pigtail was inserted and pressure obtained. Left ventriculogram was performed using 30 mL of contrast at 12 mL per second in a HIDALGO 30 degree projection. Pressures were obtained and the pigtail was removed. A 6 Qatari Presley left-4 followed by a 6 Qatari Presley right-4 was used for coronary arteriography. The right-4 was used to opacify the ramus bypass graft. This was then directed into the left subclavian and did not engage the SCHULTZ well. This was exchanged over a wire for a 6 Qatari JAIRO catheter and JAIRO injection was performed. JAIRO catheter was then removed. Angiomax bolus and drip were started. Plavix 600 mg was given. The decision was made to place a drug-eluting stent due to the ostial right coronary lesion which has higher restenosis rates. A 6 Qatari right-4 guide catheter with side holes was inserted. Even with side holes, with engaging the right coronary ostium, there was significant pressure dampening. A floppy Choice wire was advanced to the distal right coronary artery. Synergy 3.5 x 12 mm stent was then positioned and deployed, with multiple high pressure inflations. Final result was excellent. The right-4 guide was removed. A 6 Qatari Presley left-4 guide was then inserted. The same floppy Choice was used and was advanced into the distal circumflex. Synergy 3.5 x 12 mm stent was inserted, but would not pass the area of stenosis. This was removed and Emerge 3.5 x 12 mm balloon was inserted for predilatation of the area. This was then removed and Synergy 3.5 x 12 mm stent was reinserted, positioned, and deployed. Distal to the stent, there appeared to be an area of spasm and intracoronary nitroglycerin 200 mcg was given. With this, she had gradual reduction of blood pressure into the 50 systolic range. She was given fluid bolus and dopamine drip was started, with recovery of her blood pressure. Emerge NC 4.0 x 8 mm stent was then positioned in the mid portion of the circumflex stent and multiple inflations were performed. Balloon wire and guide catheter removed. The sheath was sutured in place. Patient transferred to PCU. RESULTS: PRESSURES: Aorta 108/52, mean of 77 Left Ventricle 125/14 LEFT VENTRICULOGRAM: There was normal left ventricular contractility with ejection fraction of 50-55% . CORONARY ARTERIOGRAPHY: 1. Left main was normal. 2. The LAD had a 90% proximal stenosis. 3. The ramus had a 95% proximal stenosis. 4. The circumflex had an 80% proximal stenosis. 5. The right coronary artery had a 70% ostial lesion with pressure dampening down to approximately 30 mm systolic. BYPASS GRAFTS: 1. The SCHULTZ to the LAD was patent. This filled the diagonal retrograde. 2. The vein graft to the ramus was patent. INTERVENTION RESULTS: The ostial right coronary lesion was reduced from 70% to 0%. The proximal circumflex lesion was reduced from 80% to 0%. IMPRESSION: 1. Three-vessel coronary artery disease. 2. Normal left ventricular function. 3. 2 of 2 bypass grafts patent. 4. Successful drug-eluting stent placement in the ostial right coronary artery and in the proximal circumflex. MTDD
--- NOTE | 2018-06-03 16:46 | PDOC.PN ---
- Subjective Encounter Start Date: 06/03/18 Encounter Start Time: 16:20 Subjective: f/u for NSTEMI and s/p ZAK to RCA/CX. Feels ok overall. Ambulated -: in halls with RW. No new complaints. Wants to go home in am. - Objective Resuscitation Status: Resuscitation Status FULL:Full Resuscitation MAR Reviewed: Yes Vital Signs & Weight: Vital Signs (12 hours) Temp Pulse Pulse Pulse Resp BP BP 06/03/18 15:20 98.8 F 80 16 06/03/18 13:43 69 67 174/84 H 135/66 06/03/18 11:12 64 133/63 06/03/18 11:05 99.5 F 64 17 06/03/18 07:20 98.8 F 57 L 16 BP Pulse Ox 06/03/18 15:20 156/71 H 95 06/03/18 13:43 06/03/18 11:12 06/03/18 11:05 133/63 95 06/03/18 07:20 150/70 H 96 Weight Admit Weight 134 lb 0.657 oz Weight 136 lb 11.2 oz I&O: 06/02/18 06/03/18 06/04/18 06:59 06:59 06:59 Intake Total 1240 1460 Output Total 1225 2200 Balance 15 -740 Result Diagrams: 06/03/18 05:00 06/03/18 05:00 Additional Labs: Microbiology 05/30/18 18:19 Urine voided Urine Culture - Preliminary Pseudomonas aeruginosa Laboratory Tests 01/05/18 05/30/18 05/30/18 14:59 18:48 18:48 WBC 16.4 H Sodium Troponin I 1.094 H* Triglycerides Cholesterol LDL Cholesterol, Calc HDL Cholesterol Free T4 TSH 3rd Generation 1.3591 05/30/18 05/30/18 05/31/18 18:48 21:51 01:44 WBC Sodium 132 L 133 L Troponin I 2.287 H* Triglycerides 45 Cholesterol 148 LDL Cholesterol, Calc 86 HDL Cholesterol 53 Free T4 TSH 3rd Generation 05/31/18 05/31/18 05/31/18 01:44 01:44 01:46 WBC 12.2 H Sodium Troponin I 2.963 H* Triglycerides Cholesterol LDL Cholesterol, Calc HDL Cholesterol Free T4 TSH 3rd Generation 8.6089 H 05/31/18 17:47 WBC Sodium Troponin I Triglycerides Cholesterol LDL Cholesterol, Calc HDL Cholesterol Free T4 0.88 TSH 3rd Generation EKG Reviewed by me: Yes (Tele - SR) Phys Exam - Physical Examination Constitutional: NAD contusion of R forehead and periorbital region HEENT: PERRLA, sclera anicteric, oral pharynx no lesions Neck: no nodes, no JVD, supple, full ROM Respiratory: no wheezing, no rales, no rhonchi, clear to auscultation bilateral S1, S2 Cardiovascular: RRR, no significant murmur, no rub, gallop Gastrointestinal: soft, non-tender, no distention, positive bowel sounds Musculoskeletal: no edema, pulses present Neurological: normal sensation, moves all 4 limbs Psychiatric: A&O x 3 Skin: normal turgor, cap refill <2 seconds Dx/Plan (1) NSTEMI (non-ST elevated myocardial infarction) Code(s): I21.4 - NON-ST ELEVATION (NSTEMI) MYOCARDIAL INFARCTION Status: Acute Comment: s/p ZAK to RCA and CX, continue dual antiplatelet therapy (2) Pseudomonas urinary tract infection Code(s): N39.0 - URINARY TRACT INFECTION, SITE NOT SPECIFIED; B96.5 - PSEUDOMONAS (MALLEI) CAUSING DISEASES CLASSD ELSWHR Status: Acute Comment: Continue Rocephin pending final sensitivities (3) Hypertension Code(s): I10 - ESSENTIAL (PRIMARY) HYPERTENSION Status: Chronic Qualifiers: Hypertension type: essential hypertension Qualified Code(s): I10 - Essential (primary) hypertension Comment: Stable, start low-dose betablocker in next 24h (4) Fall Code(s): W19.XXXA - UNSPECIFIED FALL, INITIAL ENCOUNTER Status: Acute Comment: Mechanical fall, PT for evaluation, pt will return home with Home Health including PT - Plan PT/OT, social work supervisor, out of bed/ambulate, DVT proph w/SCDs Stable overall -: Continue ASA/Plavix -: Start Coreg 3.125mg BID -: OOB/ambulate with PT -: Likely home in am with HH/PT * .
[2018-06-03] MEDS: Carvedilol 3.125 MG TAB PO SCH ×3 (17:03→17:36)
[2018-06-03] MEDS: cefTRIAXone\\ROCEPHIN 1 GM in Sodium Chloride 0.9% 100 ML IVPB SCH (20:20)
--- NOTE | 2018-06-03 20:44 | CON ---
NEUROLOGICAL CONSULTATION DATE OF CONSULTATION: 06/03/2018 CONSULTING PHYSICIAN: Huang Mcrae M.D. IMPRESSION: Probable lacunar stroke reslting in left hemiparesis. PLAN: 1. Antiplatelet therapy. 2. Carotid ultrasound. 3. Continue home therapy. Ms. Negro is a 78-year-old woman with history of coronary artery disease. She has been admitted for cardiac catheterization and stenting. She reports having weakness in her left leg for the last year. There is no associated pain or numbness. She was evaluated by Dr. Carlson as an outpatient. She had a CT of the brain which was unremarkable. She had a repeat CT since admission, which again was unre markable. She does not recall any slurred speech. She did note weakness in her left arm which has g isaac somewhat better. PAST MEDICAL HISTORY: Hypertension, coronary artery disease. FAMILY HISTORY: Noncontributory. ALLERGIES: STATINS and SULFA. SOCIAL HISTORY: No tobacco use. MEDICATION LIST: Reviewed. REVIEW OF SYSTEMS: No complaint of headache, nausea, vomiting, vertigo, shortness of breath, lateral ized numbness. PHYSICAL EXAMINATION: GENERAL: She is a well-nourished elderly lady in no distress. HEENT: Pupils equal and reactive. Conjunctivae clear. Oropharynx clear. NECK: Supple. EXTREMITIES: No cyanosis. NEUROLOGIC: She is alert and cooperative. Her speech is fluent and clear. No facial asymmetry was noted. Upper extremity testing showed diminished hand construction plumber and a fix on arm roll testing on the left side. Left leg had antigravity strength proximally. She is quite weak at the ankle for flexion as well as eversion, plantarflexion was a bit better. Sensation was intact. Plantar responses upgoing on the left and downgoing on the right. She can walk with use of a roller walker. EKG shows sinus bradycardia. CT scan was reviewed. SUMMARY: Elderly lady with a chronic left hemiparesis. There is not much chance it is going to get better. She suffered a fall at home due to a mishap with her clothing. I think that she can continu e outpatient therapy and have her carotid ultrasound completed.
[2018-06-04] MEDS: Thyroid 60 MG TAB PO SCH (05:22)
[2018-06-04] MEDS: Famotidine 20 MG TAB PO SCH ×2 (08:41→20:45)
[2018-06-04] MEDS: Ursodiol 300 MG CAP PO SCH (08:41)
[2018-06-04] MEDS: Tamsulosin HCl 0.4 MG CAP PO SCH (08:42)
[2018-06-04] MEDS: Carvedilol 3.125 MG TAB PO SCH ×2 (08:42→16:12)
[2018-06-04] MEDS: Polyethylene Glycol 3350 17 GM Packet PO SCH (08:42)
[2018-06-04] MEDS: Clopidogrel Bisulfate 75 MG TAB PO SCH (08:43)
[2018-06-04] MEDS: traMADol HCl 50 MG TAB PO PRN ×2 (09:44→16:11)
[2018-06-04 10:01] LABS: Hemoglobin 11.9 g/dL (12.0-16.0); Platelet Count 334 thou/uL (130-400)
--- NOTE | 2018-06-04 11:01 | PRG ---
DATE OF SERVICE: 06/04/2018 SUBJECTIVE: This morning, awake, alert and responsive. PHYSICAL EXAMINATION: VITAL SIGNS: Blood pressure is 120/80, sat 94% respiratory rate 18, afebrile, temperature 98. CHEST: Bilateral rhonchi, crackles. CARDIAC: Normal S1, S2. No gallops. ABDOMEN: Soft, no mass. IMPRESSION: 1. Urinary tract infection, Pseudomonas probably colonization. 2. Recurrent tracheobronchial infection. 3. Bronchiectasis. 4. Coronary artery disease. PLAN: However, a CT was ordered yesterday, not done. HRCT being ordered today. Otherwise, continue supportive care. MTDD
--- NOTE | 2018-06-04 11:23 | CT ---
HIGH RESOLUTION CHEST CT WITHOUT CONTRAST: History: Emphysema. Shortness of breath. Technique: High resolution chest CT was performed. Thin cuts were taken at thick intervals. This was performed in the supine position only per Dr. Ferris. FINDINGS: There is a 1.4 cm nodule projecting over the left upper lobe. Increased interstitial markings are see n in the lung apices. No honeycombing is present. There are two adjacent nodularities projecting over the right lower lobe in the costophrenic angle measuring up to 1.2 cm in size. There are also increa sed interstitial markings peripherally in the bilateral lower lobe, posteriorly. The heart is normal in size. No hilar or mediastinal lymphadenopathy are seen. A calcified subcarinal and right hilar lymph node are seen. There are calcifications in the spleen from prior granulomatous disease. The other visualized subdiap hragmatic structures are unremarkable. Degenerative changes are seen in the spine. Chest wall soft ti ssues are unremarkable. IMPRESSION: 1. There are areas of nodularity in the lungs. This is nonspecific on this limited high resolution CT protocol given the large intervals. A CT of the chest with contrast is recommended for better evalua tion. 2. Increased interstitial markings in the bilateral upper lobes and in the posterior aspect of the bi lateral lower lobes. This does not have a typical UIP pattern. POS: CASEY
--- NOTE | 2018-06-04 12:51 | DIS ---
DATE OF ADMISSION: 05/30/2018 DATE OF DISCHARGE: 06/04/2018 DISCHARGE DIAGNOSES: 1. Non-ST elevation myocardial infarction. 2. Status post percutaneous coronary intervention with drug-eluting stent placement to the right cor onary artery and circumflex. 3. Pseudomonas urinary tract infection. 4. Hypertension, stable. 5. Mechanical fall. 6. Deconditioning. CONSULTATIONS: Dr. Mcrae and Dr. Bingham with Cardiology Service. Dr. Salter with Neurology [facility]. Dr. Ferris with Pulmonology Service. PERTINENT LABORATORY DATA AND X-RAY FINDINGS: Sodium ranged between 130-133, troponin I ranged betwe en 1.09-2.96, total cholesterol 148, triglycerides 45, HDL 53, LDL 86, vitamin B12 level 872, 25-hydr oxy vitamin D level 25.6, procalcitonin 0.13, free T4 0.88, TSH 8.61. CBC showed a white blood cell count ranging between 9.3-16.4, hemoglobin ranged between 10.8-12.7. Urine culture dated 05/30/2018 showed greater than 100,[address] of the cervical spine dated 05/30 showed no acute fracture or dislocation. Moderately advanced degenerative changes noted. CT o f the facial bones dated 05/30/2018 showed no acute fracture. Superficial soft tissue contusion note d. Severe osteopenia noted. Pelvic x-rays dated 05/30/2018 showed no acute fracture. Two views of the left tibia and fibula dated 05/30/2018 showed no acute fracture. ALLERGIES: STATINS. PROCEDURES: 1. CT of the brain without contrast dated 05/30/2018 showed no acute intracranial process. Left hea rt catheterization dated 06/02/2018 showed 3-vessel coronary artery disease. 2. Two grafts patent. PCI with drug-eluting stent placement to the ostium of the right coronary art cathleen as well as proximal circumflex artery. 3. A 2D transthoracic echocardiogram dated 05/31/2018 showed ejection fraction 55%-60%. Diastolic d ysfunction noted. Carotid Doppler dated 06/02/2018 showed no hemodynamically significant stenosis. HOSPITAL COURSE: The patient was initially admitted to the Telemetry Unit after sustaining a fall at home. The patient underwent extensive evaluation with multiple imaging studies including neuro imag ing showing no acute intracranial process. The patient sustained a closed head injury with contusion to the right forehead. The patient underwent metabolic workup with cardiac biomarkers showing evide nce of non-ST elevation myocardial infarction. The patient was evaluated by the Cardiology Service u jeraldgoing a left heart catheterization. The patient was noted with occlusion of the right coronary a nd circumflex artery, undergoing PCI with drug-eluting stent placement as stated previously. The pat ient continued on dual antiplatelet therapy with aspirin and Plavix and overall clinically stabilized post-heart catheterization. The patient was also noted with urinary tract infection with Pseudomona s species treated with IV Rocephin. The received physical and occupational therapy during her hospit al course and ambulated in the hallways with contact guard assistance and the use of a rolling walker . The patient was offered screening for inpatient rehabilitation; however, patient has home health s et up at home and we will continue physical and occupational therapy on an outpatient basis. The pat ient overall remains deconditioned with high fall risk. I have interviewed and examined the patient at the time of discharge and discussed followup instructions. The patient is overall clinically stab le and ready for discharge on 06/04/2018. DISCHARGE MEDICATIONS: 1. Aspirin enteric coated 81 mg 1 tab p.o. daily. 2. Plavix 75 mg 1 tab p.o. daily. 3. Protonix 40 mg p.o. daily. 4. MiraLax 17 grams p.o. daily. 5. Flomax 0.4 mg p.o. daily. 6. [place] Thyroid 120 mg p.o. daily. 7. Ursodiol 300 mg 2 to 3 caps p.o. daily. 8. Coreg 3.125 mg p.o. b.i.d. 9. Dulera 2 puffs inhaled b.i.d. FOLLOWUP: Follow up with Dr. Carlson within a week. The patient will follow up with Dr. Huang Mcrae and to call his office for appointment time and date. CONDITION ON DISCHARGE: Fair. ACTIVITY: Ad tawanna. Rolling walker with standby/contact guard assist. DIET: Heart healthy. CODE STATUS: FULL. DISPOSITION: Home versus inpatient rehabilitation 06/04/2018.
[2018-06-04] MEDS: Mometasone/Formoterol 120 PUFF INHALER INH SCH (19:46)
[2018-06-04] MEDS: cefTRIAXone\\ROCEPHIN 1 GM in Sodium Chloride 0.9% 100 ML IVPB SCH (20:44)
[2018-06-05] MEDS: Thyroid 60 MG TAB PO SCH (05:03)
[2018-06-05] MEDS: Mometasone/Formoterol 120 PUFF INHALER INH SCH (07:40)
[2018-06-05] MEDS: Famotidine 20 MG TAB PO SCH (08:20)
[2018-06-05] MEDS: Tamsulosin HCl 0.4 MG CAP PO SCH (08:21)
[2018-06-05] MEDS: Polyethylene Glycol 3350 17 GM Packet PO SCH (08:21)
[2018-06-05] MEDS: Clopidogrel Bisulfate 75 MG TAB PO SCH (08:21)
[2018-06-05] MEDS: Carvedilol 3.125 MG TAB PO SCH (08:21)
[2018-06-05] MEDS: Ursodiol 300 MG CAP PO SCH (08:22)
--- NOTE | 2018-06-05 09:39 | PDOC.PN ---
- Subjective Encounter Start Date: 06/04/18 Encounter Start Time: 10:00 Subjective: f/u for NSTEMI s/p ZAK placement RCA/Cx on dual antiplatelet -: therapy. No new complaints. Stating she will consider inpt rehab -: instead of returning home with HH. - Objective Resuscitation Status: Resuscitation Status FULL:Full Resuscitation MAR Reviewed: Yes Vital Signs & Weight: Vital Signs (12 hours) Temp Pulse Resp BP Pulse Ox 06/05/18 04:33 98.3 F 76 16 132/64 94 L Weight Admit Weight 134 lb 0.657 oz Weight 134 lb 14.4 oz I&O: 06/04/18 06/05/18 06/06/18 06:59 06:59 06:59 Intake Total 1140 1140 Output Total 1300 1650 Balance -160 -510 Result Diagrams: 06/04/18 09:49 06/04/18 09:49 Additional Labs: Microbiology 05/30/18 18:19 Urine voided Urine Culture - Preliminary Pseudomonas aeruginosa Laboratory Tests 01/05/18 05/30/18 05/30/18 14:59 18:48 18:48 WBC 16.4 H Sodium Troponin I 1.094 H* Triglycerides Cholesterol LDL Cholesterol, Calc HDL Cholesterol Free T4 TSH 3rd Generation 1.3591 05/30/18 05/30/18 05/31/18 18:48 21:51 01:44 WBC Sodium 132 L 133 L Troponin I 2.287 H* Triglycerides 45 Cholesterol 148 LDL Cholesterol, Calc 86 HDL Cholesterol 53 Free T4 TSH 3rd Generation 05/31/18 05/31/18 05/31/18 01:44 01:44 01:46 WBC 12.2 H Sodium Troponin I 2.963 H* Triglycerides Cholesterol LDL Cholesterol, Calc HDL Cholesterol Free T4 TSH 3rd Generation 8.6089 H 05/31/18 17:47 WBC Sodium Troponin I Triglycerides Cholesterol LDL Cholesterol, Calc HDL Cholesterol Free T4 0.88 TSH 3rd Generation EKG Reviewed by me: Yes (Tele - SR) Phys Exam - Physical Examination Constitutional: NAD HEENT: PERRLA, sclera anicteric, oral pharynx no lesions Neck: no nodes, no JVD, supple, full ROM Respiratory: no wheezing, no rales, no rhonchi, clear to auscultation bilateral S1, S2 Cardiovascular: RRR, no significant murmur, no rub, gallop Gastrointestinal: soft, non-tender, no distention, positive bowel sounds Musculoskeletal: no edema, pulses present Neurological: normal sensation, moves all 4 limbs Psychiatric: A&O x 3 Skin: normal turgor, cap refill <2 seconds Dx/Plan (1) NSTEMI (non-ST elevated myocardial infarction) Code(s): I21.4 - NON-ST ELEVATION (NSTEMI) MYOCARDIAL INFARCTION Status: Acute Comment: s/p ZAK to RCA and CX, continue dual antiplatelet therapy, cardiac rehab (2) Pseudomonas urinary tract infection Code(s): N39.0 - URINARY TRACT INFECTION, SITE NOT SPECIFIED; B96.5 - PSEUDOMONAS (MALLEI) CAUSING DISEASES CLASSD ELSWHR Status: Acute Comment: Transition to Omnicef 300mg BID x 5 days (3) Hypertension Code(s): I10 - ESSENTIAL (PRIMARY) HYPERTENSION Status: Chronic Qualifiers: Hypertension type: essential hypertension Qualified Code(s): I10 - Essential (primary) hypertension Comment: Stable, continue Coreg 3.125mg BID (4) Fall Code(s): W19.XXXA - UNSPECIFIED FALL, INITIAL ENCOUNTER Status: Acute Comment: Mechanical fall, PT for evaluation, pt will return home with Home Health including PT - Plan plan discussed w/ family, continue antibiotics, PT/OT, social worker psychiatric, out of bed/ambulate, DVT proph w/SCDs Stable overall -: Inpt Rehab screening today -: Discussed options regarding resuming HH vs Inpt Rehab with daughter -: D/C Rocephin -: OOB/PT * CT of chest per Pulmonology today * Likely to inpt rehab later today or in am
[2018-06-05] MEDS: traMADol HCl 50 MG TAB PO PRN (10:35)
--- NOTE | 2018-06-05 11:19 | ADD-DIS ---
ADDENDUM: DATE OF ADMISSION: 05/30/2018 DATE OF DISCHARGE: 06/05/2018 HOSPITAL COURSE: The patient's discharge was held on 06/04/2018 as the patient decided to pursue [facility] rehabilitation as an option for skilled care and physical therapy. The patient originally had stated adamantly that she wanted to return home; however, at the time of discharge originally slated for 06/04/2018, the patient changed her mind. Inpatient rehabilitation screening deemed the patient an appropriate candidate for rehab and the silvio ent will pursue transfer to [facility] inpatient rehabilitation 06/05/2018. The patient remained clinically stable for the remainder of the hospital course, tolerating regular oral intake. I have discussed f janet instructions with the patient at the time of discharge, at which point the patient verbalize s agreement and understanding. The patient ready for discharge on 06/05/2018. Please see dictated discharge summary 06/04/2018 for full details and medication summary.
[2018-06-05 13:00] VITALS: BP 136/63; TEMP 98.9
== END 2018-06-05 13:28 | DRG 247 ==
LOC: ERS 16:39 → 2NO 19:48
PROVIDERS: ADMIT Internal Medicine; ATTEND Internal Medicine
PROC: 027135Z Dilation of Coronary Artery, Two Arteries with Two Drug-eluting Intraluminal Devices, Percutaneous Approach (ICD-10-PCS; principal; 2018-06-02)
PROC: 4A023N7 Measurement of Cardiac Sampling and Pressure, Left Heart, Percutaneous Approach (ICD-10-PCS; 2018-06-02)
PROC: B2111ZZ Fluoroscopy of Multiple Coronary Arteries using Low Osmolar Contrast (ICD-10-PCS; 2018-06-02)
PROC: B2151ZZ Fluoroscopy of Left Heart using Low Osmolar Contrast (ICD-10-PCS; 2018-06-02)
DX: I21.4 Non-ST elevation (NSTEMI) myocardial infarction (principal); N39.0 Urinary tract infection, site not specified; G81.94 Hemiplegia, unspecified affecting left nondominant side; I25.2 Old myocardial infarction; I25.10 Atherosclerotic heart disease of native coronary artery without angina pectoris; Z95.1 Presence of aortocoronary bypass graft; E03.9 Hypothyroidism, unspecified; S00.03XA Contusion of scalp, initial encounter; W18.30XA Fall on same level, unspecified, initial encounter; Y92.002 Bathroom of unspecified non-institutional (private) residence as the place of occurrence of the external cause; K58.9 Irritable bowel syndrome, unspecified; Z79.82 Long term (current) use of aspirin; Z79.899 Other long term (current) drug therapy; Z88.8 Allergy status to other drugs, medicaments and biological substances; Z88.2 Allergy status to sulfonamides; R53.81 Other malaise; J44.9 Chronic obstructive pulmonary disease, unspecified; B96.5 Pseudomonas (aeruginosa) (mallei) (pseudomallei) as the cause of diseases classified elsewhere
CPT/HCPCS: 36415; 70450; 70486; 71250; 72125; 72170; 80048; 80053; 80061; 81003; 81015; 82306; 82553; 82565; 82607; 84145; 84439; 84443; 84484; 85007; 85014; 85018; 85025; 85027; 85049; 85347; 87077; 87086; 87186; 92928; 92929; 93005; 93010; 93306; 93459; 93798; 93880; 94664; 96365; C1725; C1769; C1874; C1887; C9600; C9601; G8978-GP-CL; G8979-GP-CJ; G8987-GO-CK; G8988-GO-CI; J0583; J0696; J1265; J1644; J1650; J2001; J2250; J3010; J7050; Q0162

== ENCOUNTER 2018-09-16 15:02 | Inpatient (IN) | payer MEDICARE, MEDICAID ==
[2018-09-16 16:05] LABS: #Basophils 0.1 thou/uL (0.0-0.2); #Eosinphils 0.3 thou/uL (0.0-0.7); #Lymphocytes 2.4 thou/uL (1.20-3.40); #Monocytes 1.4 thou/uL (0.11-0.59); %Basophils 0.8 % (0.0-1.0); %Eosinophils 1.7 % (0.0-10.0); %Lymphocytes 13.2 % (21.0-51.0); %Monocytes 7.7 % (0.0-10.0); %Neutrophils 76.6 % (42.0-75.0); Hemoglobin 9.9 g/dL (12.0-16.0); Mean Corpuscular HGB CONC 30.4 g/dL (32.0-36.0); Mean Corpuscular Hemoglobin 25.9 pg (27.0-31.0); Mean Corpuscular Volume 85.2 fL (78.0-98.0); Mean Platelet Volume 5.9 fL (7.4-10.4); Platelet Count 408 thou/uL (130-400); RBC Distribution Width 15.7 % (11.5-14.5); Red Blood Cell (RBC) Count 3.82 mill/uL (4.20-5.40); White Blood Cell (WBC) Count 18.3 thou/uL (4.8-10.8)
--- NOTE | 2018-09-16 16:09 | RAD ---
CHEST ONE VIEW: History: Shortness of breath. Comparison: CT chest 09-01-18 FINDINGS: There is increase in multifocal airspace opacities throughout the right upper lobe. Some small effusi ons. Heart size is similar. No acute osseous abnormality. Multiple midline sternotomy wires. IMPRESSION: Progressive airspace opacities throughout the right lung concerning for progressive pneumonia. POS: TPC
[2018-09-16 16:46] LABS: ALT (SGPT) Less than 7 U/L (8-55); AST (SGOT) 12 U/L (5-34); Albumin 2.9 g/dL (3.4-4.8); Alkaline Phosphatase 128 U/L (40-150); Anion Gap 13 mmol/L (10-20); BUN (Urea Nitrogen) 13 mg/dL (9.8-20.1); Bilirubin, Total 0.5 mg/dL (0.2-1.2); Calc. Creatinine Clearance 0 mL/min (70-130); Calcium 9.6 mg/dL (7.8-10.44); Carbon Dioxide 28 mmol/L (23-31); Chloride 94 mmol/L (98-107); Estimated GFR-MDRD 87; Globulin 4.1 g/dL (2.4-3.5); Potassium 4.5 mmol/L (3.5-5.1); Sodium 130 mmol/L (136-145)
[2018-09-16 17:00] LABS: Glucose 96 mg/dL (83-110)
[2018-09-16] MEDS ORDERED: Piperacillin/Tazobactam 4.5 GM VIAL ONE (17:01)
[2018-09-16 17:12] LABS: Bilirubin Negative (Negative); Blood, Urine Negative (Negative); Clarity CLEAR (Clear); Glucose, Urine (Dipstick) Negative (Negative); Leukocyte Small (Negative); Nitrite Negative (Negative); Protein, Urine (Dipstick) Negative (Neg-Trace); Specific Gravity, Urine 1.018 (1.002-1.036); pH, Urine 6.5 (5.0-9.0)
[2018-09-16 17:13] LABS: Bacteria/HPF None Seen HPF (None Seen); Pathc Cast-AUWi Flag 2.18 (0-2.49)
[2018-09-16 17:32] LABS: Hyaline Casts/LPF 0-3 HYALINE CAST LPF (0-3 Hyaline); Oval Fat Bodies/HPF 1+ HPF (None Seen); Renal Epithelial 0-3 HPF (0-3); Transitional Epithelial 0-3 HPF (0-3)
[2018-09-16] MEDS ORDERED: Senokot S 8.6-50 MG TAB PO PRN (19:15)
[2018-09-16] MEDS ORDERED: Ondansetron ODT 4 MG TAB PO PRN (19:15)
[2018-09-16] MEDS ORDERED: Acetaminophen 650 MG Suppository PR PRN (19:15)
[2018-09-16] MEDS ORDERED: Ondansetron PF 4 MG/2 ML Vial IVP PRN (19:15)
[2018-09-16] MEDS: Sodium Chloride 0.9% 1,000 ML IV SCH (20:02)
[2018-09-16] MEDS: cefTRIAXone\\ROCEPHIN 2 GM in Sodium Chloride 0.9% 100 ML IVPB SCH (20:03)
[2018-09-16] MEDS: Acetaminophen 325 MG TAB PO PRN (20:03)
[2018-09-16] MEDS: Ursodiol 300 MG CAP PO SCH (20:03)
[2018-09-16] MEDS: Mirtazapine 15 MG TAB PO SCH (20:03)
[2018-09-16] MEDS: Guaifenesin DM 100-10/5 ML UDCUP PO PRN (20:24)
[2018-09-16 20:55] LABS: Troponin I Less than 0.010 ng/mL (< 0.028)
[2018-09-16 23:43] LABS: Troponin I Less than 0.010 ng/mL (< 0.028)
[2018-09-16 23:59] VITALS: BMI 24.3
--- NOTE | 2018-09-17 01:30 | HP ---
PRIMARY CARE PHYSICIAN: Zack Carlson MD CHIEF COMPLAINT: Cough, shortness of breath. HISTORY OF PRESENT ILLNESS: This is a 78-year-old white female with a known history of emphysema and recurrent pneumonia. She has recently had to go to a senior care facility at [facility]. There for the last, almost a month, she has been having increased shortness of breath. She is on chronic home oxygen, she does not remember if it is 2 or 3 L. She reports that the shortness of breath got severely worse over the last couple of days. She has also been having fevers, cough, productive of yellow-green sputum and had chest pain all over when she coughs. The patient presented to the emergency room after a fever up to 101 at the custodial. In the emergency room, she was noted to be tachypneic. Respirations as high as in the 30s, but saturating well on just 1 L of oxygen. The patient was found to have a significant diffuse pneumonia throughout her right lung as well as an elevated white blood cell count and so she is being admitted. Her breathing is improved after a nebulizer in the emergency room. PAST MEDICAL HISTORY: 1. Coronary artery disease with previous bypass grafting and two recent stents. 2. Emphysema, recurrent pneumonia, on chronic oxygen. 3. Hyperlipidemia. 4. Hypothyroidism. 5. Irritable bowel syndrome. 6. Deconditioning with multiple falls. PAST SURGICAL HISTORY: 1. Sinus surgery. 2. Coronary artery bypass grafting x2, in the last 10 years. 3. Coronary stents placed x2 about 3 months ago. 4. Hysterectomy. 5. Left finger surgery. 6. Spinal surgery. ALLERGIES: 1. STATINS. 2. SULFA. CURRENT MEDICATIONS: 1. Acetaminophen as needed. 2. [place] Thyroid 180 mg daily. 3. Carvedilol 3.125 mg twice a day. 4. Chloraseptic mouth spray as needed. 5. Clopidogrel 75 mg daily. 6. Dulera 100/5 mcg two inhalations twice a day. 7. DuoNeb as needed. 8. Flomax 0.4 mg daily. 9. Fluticasone nasal spray 2 puffs in each nostril daily as needed for allergies. 10. MiraLAX as needed. 11. Guaifenesin syrup as needed. 12. Ibuprofen as needed. 13. Melatonin 3 mg at night. 14. Mirtazapine 7.5 mg at night. 15. Multivitamin with iron daily. 16. Protonix 20 mg daily. 17. Tessalon Perles 100 mg every 8 hours as needed. 18. Tramadol as needed. 19. Ursodiol 300 mg 3 times a day. 20. Zyrtec-D 10 mg twice a day as needed for allergies. SOCIAL HISTORY: The patient just recently entered a skilled nurse facility who lived independently in the [facility] before that. Ambulates with a rolling walker. No history of alcohol, tobacco, or illicit drug use. FAMILY HISTORY: No family history of early coronary artery disease or other pertinent medical problems. REVIEW OF SYSTEMS: CONSTITUTIONAL: Fevers and chills as per HPI. EYES: No vision changes. ENT: She has had some congestion and runny nose and sore throat. CARDIOVASCULAR: She has a chest pain just with cough only. No racing heart. No swelling of her extremities. PULMONARY: See HPI. GASTROINTESTINAL: No abdominal pain. She does have some nausea, but no vomiting. She does tend toward constipation. No diarrhea. GENITOURINARY: She has dysuria on and off and has had it for since her whole life she states, she does not notice any specific worsening right now. MUSCULOSKELETAL: No muscle aches or joint pain. SKIN: No rashes or lesions. NEUROLOGIC: No numbness, tingling, or focal weakness. PHYSICAL EXAMINATION: VITAL SIGNS: Blood pressure 145/91, pulse 91, respirations currently 26, temperature 98.8, O2 saturation 94% on 1 L of oxygen. GENERAL: This is a well-developed elderly white female who is breathing a little bit fast, otherwise not in acute respiratory distress. HEENT: Pupils are equal, round, and reactive to light. Oropharynx is clear without lesions, erythema, or exudate. NECK: Supple. No lymphadenopathy. No thyroid nodules or tonsillar enlargement. No JVD. HEART: Regular rate and rhythm. No murmurs, rubs, or gallops. LUNGS: She has diffuse crackles and rhonchi in her right lung. ABDOMEN: Soft, nontender to palpation. Normoactive bowel sounds. No hepatosplenomegaly or other masses. EXTREMITIES: No clubbing, cyanosis, or edema. SKIN: No rashes or lesions noted. NEUROLOGIC: The patient moves all extremities equally. No facial droop. PSYCHIATRIC: Alert and oriented x3. Normal mood and affect. LABORATORY DATA: CBC with a white blood cell count of 18,000, 76% neutrophils, hemoglobin 9.9, which is stable for the last couple of months, it was running in 11s before that. Hematocrit 30.6, platelet count 408. Complete metabolic panel is notable for a sodium of 130, which she does intermittently, chloride of 94, and albumin of 2.9. The rest was normal. Troponin was negative x1. Lactic acid was negative at 1.3. Urinalysis showed 11-20 white blood cells, no bacteria. No nitrites, there was small leukocyte esterase. There were lots of squamous epithelial cells. Chest x-ray, I did review the chest x-ray done in the emergency room along with the radiologist's report. It shows progressive airspace opacity throughout the right lung concerning for progressive pneumonia. EKG done in the emergency room shows a normal sinus rhythm at 66 beats per minute. No significant ST-segment changes or T-wave abnormalities. ASSESSMENT: 1. Acute likely bacterial pneumonia. The patient has received Rocephin, Levaquin, and one dose of vancomycin in the emergency room. We will continue Rocephin and Levaquin in the hospital. We will consult patient's brake rider, Dr. Ferris. We will give DuoNeb and supportive oxygen. The patient does not sound wheezy at this point, so we will hold off on any steroids at this time. 2. Sepsis with increased respiratory rate and white blood cell count, but no severe sepsis, normal lactic acid level. We will continue hydrating the patient and we will monitor closely on telemetry. 3. History of coronary artery disease with previous coronary artery bypass graft and recent stent. Troponins negative. We will monitor patient on telemetry and will continue antiplatelet agents. 4. Anemia, seems a little bit progressive, uncertain if it is due to the addition of Plavix recently to patient's regimen. We will monitor closely in the hospital. The patient may eventually need a GI workup if this continues to drop. 5. Hyponatremia, mild. We will monitor closely. 6. Hypothyroidism. Resume patient's [place] Thyroid. This is actually a higher dose than she was on previously in her previous hospitalization a few months ago. We will check a TSH here in the hospital and make certain that she is on the proper dose. 7. Hyperlipidemia. We will resume patient's statin. 8. Gastrointestinal prophylaxis. Resume patient's Protonix. 9. Deep venous thrombosis prophylaxis. We will put the patient on Lovenox and SCDs while in bed. 10. Code status. I did discuss this with the patient, she is a full code. Should she be incapacitated, she states that her daughter would be her medical decision maker, her name is Jen Braxton. Job ID: [id number] MTDD
[2018-09-17 04:52] LABS: #Basophils 0.1 thou/uL (0.0-0.2); #Eosinphils 0.4 thou/uL (0.0-0.7); #Lymphocytes 1.9 thou/uL (1.20-3.40); #Neutrophils 9.7 thou/uL (1.40-6.50); %Basophils 0.7 % (0.0-1.0); %Eosinophils 3.1 % (0.0-10.0); %Lymphocytes 14.6 % (21.0-51.0); %Monocytes 7.6 % (0.0-10.0); %Neutrophils 73.9 % (42.0-75.0); Mean Corpuscular HGB CONC 31.3 g/dL (32.0-36.0); Mean Corpuscular Hemoglobin 26.7 pg (27.0-31.0); Mean Corpuscular Volume 85.3 fL (78.0-98.0); Mean Platelet Volume 6.6 fL (7.4-10.4); Platelet Count 330 thou/uL (130-400); RBC Distribution Width 15.8 % (11.5-14.5); Red Blood Cell (RBC) Count 3.73 mill/uL (4.20-5.40); White Blood Cell (WBC) Count 13.1 thou/uL (4.8-10.8)
[2018-09-17] MEDS: Guaifenesin DM 100-10/5 ML UDCUP PO PRN ×2 (04:53→14:38)
[2018-09-17 05:06] LABS: Anion Gap 12 mmol/L (10-20); BUN (Urea Nitrogen) 10 mg/dL (9.8-20.1); Calc. Creatinine Clearance 80 mL/min (70-130); Calcium 9.4 mg/dL (7.8-10.44); Carbon Dioxide 27 mmol/L (23-31); Chloride 98 mmol/L (98-107); Estimated GFR-MDRD Greater than 90; Glucose 74 mg/dL (83-110); Sodium 133 mmol/L (136-145)
[2018-09-17] MEDS: Mometasone/Formoterol 120 PUFF INHALER INH SCH ×2 (07:06→19:52)
--- NOTE | 2018-09-17 07:26 | PDOC.PN ---
- Subjective Encounter Start Date: 09/17/18 Encounter Start Time: 09:20 Subjective: Patient reports some improvement in breathing this morning. Hungry -: and waiting for breakfast tray. No fever. - Objective Resuscitation Status - Order Detail: 09/16/18 18:59 Resuscitation Status Routine Resuscitation Status: FULL: Full Resuscitation Discussed with: Patient MAR Reviewed: Yes Vital Signs & Weight: Vital Signs (12 hours) Temp Pulse Resp BP Pulse Ox 09/17/18 06:41 95 09/17/18 06:37 82 16 94 L 09/17/18 04:00 97.4 F L 75 20 149/70 H 98 09/17/18 00:27 59 L 16 98 09/17/18 00:00 99.0 F 72 18 94/50 L 100 Weight Weight 141 lb 11.2 oz I&O: 09/16/18 09/17/18 09/18/18 06:59 06:59 06:59 Intake Total 1175 Balance 1175 Result Diagrams: 09/17/18 04:23 09/17/18 04:23 Phys Exam - Physical Examination Constitutional: NAD HEENT: moist MMs Respiratory: no wheezing right sided rhonchi greater than left Cardiovascular: RRR, no significant murmur Gastrointestinal: soft, positive bowel sounds Musculoskeletal: no edema Neurological: non-focal, moves all 4 limbs Psychiatric: normal affect, A&O x 3 Dx/Plan (1) Bacterial pneumonia Code(s): J15.9 - UNSPECIFIED BACTERIAL PNEUMONIA Status: Acute Comment: On Rocephin and Levaquin, Pulmonology consulted (2) Sepsis Code(s): A41.9 - SEPSIS, UNSPECIFIED ORGANISM Status: Acute Comment: WBC improving, tachypnea resolved (3) COPD exacerbation Code(s): J44.1 - CHRONIC OBSTRUCTIVE PULMONARY DISEASE W (ACUTE) EXACERBATION Status: Acute Comment: giving nebs, steroids as per pulmonology (4) Coronary artery disease Code(s): I25.10 - ATHSCL HEART DISEASE OF [place] CORONARY ARTERY W/O ANG PCTRS Status: Chronic Comment: with previous bipass and recent stents, stable (5) Anemia Code(s): D64.9 - ANEMIA, UNSPECIFIED Status: Chronic Comment: stable (6) Hyponatremia Code(s): E87.1 - HYPO-OSMOLALITY AND HYPONATREMIA Status: Acute Comment: improving with IV fluids (7) Hyperlipidemia Code(s): E78.5 - HYPERLIPIDEMIA, UNSPECIFIED Status: Chronic (8) Hypothyroid Code(s): E03.9 - HYPOTHYROIDISM, UNSPECIFIED Status: Chronic - Plan cont current plan of care, continue antibiotics, PT/OT, respiratory therapy, DVT proph w/lovenox, DVT proph w/SCDs * . - Discharge Day Encounter end time: 09:30
[2018-09-17] MEDS: Carvedilol 3.125 MG TAB PO SCH ×2 (07:53→16:20)
[2018-09-17] MEDS: Enoxaparin Sodium 40 MG/0.4 ML SYRINGE SC SCH (09:33)
[2018-09-17] MEDS: Clopidogrel Bisulfate 75 MG TAB PO SCH (09:33)
[2018-09-17] MEDS: Aspirin Chewable 81 MG TAB PO SCH (09:33)
[2018-09-17] MEDS: Polyethylene Glycol 3350 17 GM Packet PO SCH (09:33)
[2018-09-17] MEDS: Tamsulosin HCl 0.4 MG CAP PO SCH (09:33)
[2018-09-17] MEDS: Sodium Chloride 0.9% 1,000 ML IV SCH (09:33)
[2018-09-17] MEDS: Ursodiol 300 MG CAP PO SCH ×3 (09:33→20:45)
--- NOTE | 2018-09-17 10:13 | CON ---
DATE OF CONSULTATION: HISTORY OF PRESENT ILLNESS: Charlotte Negro is a 78-year-old female, well known to me numerous admissions for recurrent probably aspiration pneumonia. She presents now with a month history of sickness, cough, congestion, shortness of breath and grossly purulent sputum, green to yellow. X-ray yesterday shows bilateral bronchopneumonia. She had a CT done which in essence conformed extensive bilateral bronchopneumonia. Ms. Negro is a nonsmoker who has chronic cough, chronic bronchiectasis, severe limitation to activity. PAST MEDICAL HISTORY: Apparently alcoholic-nonalcoholic cirrhosis, hypothyroidism, metabolic syndrome, bronchiectasis, high cholesterol. PREVIOUS SURGERIES: Hysterectomy, spinal surgery. SOCIAL HISTORY: Alcohol, none. Tobacco, none. HOME MEDICINES: Include: 1. Ursodiol 300 three times a day. 2. Plavix 75. 3. Coreg 3.125 twice a day. 4. Thyroid 180 mg. 5. DuoNeb. 6. Flomax 0.4. 7. Dulera twice a day. 8. Guaifenesin. 9. Remeron 7.5. 10. Protonix 20. Since admission, started on Levaquin, nebulizer, and Rocephin. ALLERGIES: MULTIPLE INCLUDING STATINS, ZETIA, AND SULFA. REVIEW OF SYSTEMS: Otherwise 10-point negative. PHYSICAL EXAMINATION: GENERAL: She is awake, alert, responsive. VITAL SIGNS: Blood pressure is 153/65, sats 97% on 2 L, respiratory rate 18, temperature 99, and pulse 81. CHEST: Extensive rhonchi and crackles. CARDIAC: Normal S1, S2. No gallops or masses. LABORATORY DATA: White count 59731, H and H 10 and 31, platelet count 330. Lytes are normal. Urine shows WBC 11-20. IMPRESSION: 1. Bilateral bronchopneumonia. 2. Recurrent aspiration, rule out Mycobacterium avium complex. 3. Bronchiectasis, chronic obstructive pulmonary disease. 4. Bilateral pleural effusion, coronary artery disease. PLAN: I have added steroids, added Dulera to her present treatment. Collect sputum for appropriate studies. We will follow. Consultation note, 70 minutes, 50% direct patient care. Job ID: [id number]
[2018-09-17] MEDS: Acetaminophen 325 MG TAB PO PRN ×2 (15:28→23:58)
[2018-09-17] MEDS: cefTRIAXone\\ROCEPHIN 2 GM in Sodium Chloride 0.9% 100 ML IVPB SCH (20:43)
[2018-09-17] MEDS: Mirtazapine 15 MG TAB PO SCH (20:44)
[2018-09-18] MEDS: Melatonin 3 MG TAB PO PRN ×2 (00:10→22:37)
[2018-09-18] MEDS: Guaifenesin DM 100-10/5 ML UDCUP PO PRN ×3 (00:10→23:41)
[2018-09-18] MEDS: Sodium Chloride 0.9% 1,000 ML IV SCH ×2 (01:23→14:14)
[2018-09-18] MEDS: Mometasone/Formoterol 120 PUFF INHALER INH SCH ×2 (07:10→19:30)
--- NOTE | 2018-09-18 09:02 | PDOC.PN ---
- Subjective Encounter Start Date: 09/18/18 Encounter Start Time: 11:20 Subjective: Patient feeling a little better each day. Cough improved. - Objective Resuscitation Status - Order Detail: 09/16/18 18:59 Resuscitation Status Routine Resuscitation Status: FULL: Full Resuscitation Discussed with: Nadir RINALDI Reviewed: Yes Vital Signs & Weight: Vital Signs (12 hours) Temp Pulse Resp BP Pulse Ox 09/18/18 06:42 98 09/18/18 06:41 72 20 97 09/18/18 03:30 98.1 F 69 22 H 119/58 L 97 09/18/18 01:30 71 18 94 L 09/17/18 23:20 97.9 F Weight Weight 143 lb 9.6 oz I&O: 09/17/18 09/18/18 09/19/18 06:59 06:59 06:59 Intake Total 1175 2090 Output Total 250 Balance 1175 1840 Result Diagrams: 09/17/18 04:23 09/17/18 04:23 Phys Exam - Physical Examination Constitutional: NAD HEENT: moist MMs Respiratory: no wheezing, no rales some scattered rhonchi on right Cardiovascular: RRR, no significant murmur Gastrointestinal: soft, positive bowel sounds Musculoskeletal: no edema Neurological: non-focal, moves all 4 limbs Psychiatric: normal affect, A&O x 3 Dx/Plan (1) Bacterial pneumonia Code(s): J15.9 - UNSPECIFIED BACTERIAL PNEUMONIA Status: Acute Comment: On Kathi and Dr. Josy Koch following (2) Sepsis Code(s): A41.9 - SEPSIS, UNSPECIFIED ORGANISM Status: Acute Comment: WBC improving, tachypnea resolved (3) COPD exacerbation Code(s): J44.1 - CHRONIC OBSTRUCTIVE PULMONARY DISEASE W (ACUTE) EXACERBATION Status: Acute Comment: giving nebs, steroids as per pulmonology (4) Coronary artery disease Code(s): I25.10 - ATHSCL HEART DISEASE OF [place] CORONARY ARTERY W/O ANG PCTRS Status: Chronic Comment: with previous bipass and recent stents, stable (5) Anemia Code(s): D64.9 - ANEMIA, UNSPECIFIED Status: Chronic Comment: stable (6) Hyponatremia Code(s): E87.1 - HYPO-OSMOLALITY AND HYPONATREMIA Status: Acute Comment: improving with IV fluids (7) Hyperlipidemia Code(s): E78.5 - HYPERLIPIDEMIA, UNSPECIFIED Status: Chronic (8) Hypothyroid Code(s): E03.9 - HYPOTHYROIDISM, UNSPECIFIED Status: Chronic - Plan cont current plan of care, continue antibiotics, PT/OT, respiratory therapy, DVT proph w/lovenox, DVT proph w/SCDs * . - Discharge Day Encounter end time: 11:30
[2018-09-18] MEDS: Clopidogrel Bisulfate 75 MG TAB PO SCH (09:59)
[2018-09-18] MEDS: Aspirin Chewable 81 MG TAB PO SCH (09:59)
[2018-09-18] MEDS: Tamsulosin HCl 0.4 MG CAP PO SCH (09:59)
[2018-09-18] MEDS: Ursodiol 300 MG CAP PO SCH ×3 (09:59→20:36)
[2018-09-18] MEDS: Enoxaparin Sodium 40 MG/0.4 ML SYRINGE SC SCH (10:00)
[2018-09-18] MEDS: predniSONE 20 MG TAB PO SCH (10:00)
[2018-09-18] MEDS: Carvedilol 3.125 MG TAB PO SCH ×2 (10:00→16:00)
[2018-09-18] MEDS: Polyethylene Glycol 3350 17 GM Packet PO SCH (10:00)
--- NOTE | 2018-09-18 10:57 | PRG ---
DATE OF SERVICE: SUBJECTIVE: This morning, she is awake, alert, and responsive. She is weak, poor cough. OBJECTIVE: VITAL SIGNS: Saturations are better at 98 on 2 L, temperature is 98 , pulse 76 respirations 20, blood pressure 119/58. CHEST: Minimal wheezing, rhonchi. CARDIAC: Normal S1 and S2. No gallops. ABDOMEN: No masses. IMPRESSION: Chronic bronchitis, bronchiectasis. PLAN: Continue PT, supportive care, antibiotics. Job ID: [id number] [facility]
[2018-09-18] MEDS: Acetaminophen 325 MG TAB PO PRN (11:57)
[2018-09-18] MEDS ORDERED: Sodium Chloride 0.65% Nasal 44 ML BOT EA NARE PRN (12:16)
[2018-09-18] MEDS ORDERED: Bisacodyl 10 MG SUPP PR PRN (12:17)
[2018-09-18] MEDS: Benzonatate 100 MG CAP PO PRN (15:59)
[2018-09-18] MEDS: Sodium Chloride 0.45% 1,000 ML IV SCH (16:07)
[2018-09-18] MEDS: cefTRIAXone\\ROCEPHIN 2 GM in Sodium Chloride 0.9% 100 ML IVPB SCH (20:33)
[2018-09-18] MEDS: Mirtazapine 15 MG TAB PO SCH (20:34)
[2018-09-19] MEDS: Acetaminophen 325 MG TAB PO PRN ×2 (03:31→09:52)
[2018-09-19 05:56] LABS: #Eosinphils 0.1 thou/uL (0.0-0.7); #Lymphocytes 1.8 thou/uL (1.20-3.40); #Monocytes 0.9 thou/uL (0.11-0.59); #Neutrophils 7.2 thou/uL (1.40-6.50); %Basophils 0.3 % (0.0-1.0); %Eosinophils 1.2 % (0.0-10.0); %Lymphocytes 18.1 % (21.0-51.0); %Monocytes 9.1 % (0.0-10.0); %Neutrophils 71.3 % (42.0-75.0); Mean Corpuscular HGB CONC 30.9 g/dL (32.0-36.0); Mean Corpuscular Hemoglobin 26.3 pg (27.0-31.0); Mean Corpuscular Volume 85.2 fL (78.0-98.0); Mean Platelet Volume 6.1 fL (7.4-10.4); Platelet Count 375 thou/uL (130-400); RBC Distribution Width 15.5 % (11.5-14.5); Red Blood Cell (RBC) Count 3.42 mill/uL (4.20-5.40); White Blood Cell (WBC) Count 10.1 thou/uL (4.8-10.8)
[2018-09-19 06:13] LABS: Anion Gap 12 mmol/L (10-20); BUN (Urea Nitrogen) 6 mg/dL (9.8-20.1); Calc. Creatinine Clearance 96 mL/min (70-130); Carbon Dioxide 27 mmol/L (23-31); Chloride 100 mmol/L (98-107); Estimated GFR-MDRD Greater than 90; Glucose 79 mg/dL (83-110); Sodium 135 mmol/L (136-145)
[2018-09-19] MEDS: Mometasone/Formoterol 120 PUFF INHALER INH SCH ×2 (07:11→20:47)
--- NOTE | 2018-09-19 09:32 | PRG ---
DATE OF SERVICE: 09/19/2018 SUBJECTIVE: Charlotte Negro, this morning, appears somewhat better. Less short of breath, less cough. OBJECTIVE: VITAL SIGNS: Saturations _95%_, temperature 97, pulse 118, blood pressure 160/98. CHEST: Decreased breath sounds without any wheezing. CARDIAC: Normal S1, S2. No gallops. ABDOMEN: No masses. LABORATORY DATA: White count 10785. IMPRESSION: Bilateral bronchopneumonia probably aspiration, severe deconditioning, chronic obstructive pulmonary disease, bronchiectasis. PLAN: I have yet to see any sputum results. I have ordered multiple sputum for Gram stain, C and S as well as for acid-fast. Continue antibiotics. Follow up chest x-ray. Job ID: [id number] MTDD
[2018-09-19] MEDS: Carvedilol 3.125 MG TAB PO SCH ×2 (09:44→16:41)
[2018-09-19] MEDS: Tamsulosin HCl 0.4 MG CAP PO SCH (09:44)
[2018-09-19] MEDS: predniSONE 20 MG TAB PO SCH (09:44)
[2018-09-19] MEDS: Aspirin Chewable 81 MG TAB PO SCH (09:44)
[2018-09-19] MEDS: Ursodiol 300 MG CAP PO SCH ×3 (09:44→21:38)
[2018-09-19] MEDS: Clopidogrel Bisulfate 75 MG TAB PO SCH (09:44)
[2018-09-19] MEDS: Enoxaparin Sodium 40 MG/0.4 ML SYRINGE SC SCH (09:45)
[2018-09-19] MEDS: Polyethylene Glycol 3350 17 GM Packet PO SCH (09:46)
--- NOTE | 2018-09-19 10:02 | RAD ---
CHEST 1 VIEW: HISTORY: Pneumonia. COMPARISON: Radiograph 09/16/2018. FINDINGS: Multifocal airspace opacities are similar. Small effusions. Heart size is similar. No pneumothorax . IMPRESSION: No significant change in radiographic appearance of the chest. POS: [facility]PC
[2018-09-19] MEDS ORDERED: Loratadine 10 MG TAB PO PRN (10:19)
[2018-09-19] MEDS ORDERED: hydrALAZINE 20 MG/ML VIAL SLOW IVP PRN (10:19)
[2018-09-19] MEDS ORDERED: Loperamide HCl 2 MG CAP PO PRN (10:19)
[2018-09-19] MEDS ORDERED: Eucerin (Mineral Oil/Petrolatum,White) 30 gm Jar TOP PRN (10:19)
[2018-09-19] MEDS ORDERED: Artificial Tears 18 DROP/0.9 ML EA EYE PRN (10:19)
[2018-09-19] MEDS ORDERED: Cepastat Lozenges 1 LOZ PO PRN (10:19)
[2018-09-19] MEDS ORDERED: Calcium Carbonate 500 MG ChewTAB PO PRN (10:19)
[2018-09-19] MEDS: Diabetic Tussin 200 MG/10 ML UDCUP PO PRN (11:01)
--- NOTE | 2018-09-19 12:25 | PDOC.PN ---
- Subjective Encounter Start Date: 09/19/18 Encounter Start Time: 08:45 -: old records requested/rev pt is weak, has cough, no fever Patient seen and examined. No overnight events - Objective Resuscitation Status - Order Detail: 09/16/18 18:59 Resuscitation Status Routine Resuscitation Status: FULL: Full Resuscitation Discussed with: Patient MAR Reviewed: Yes Vital Signs & Weight: Vital Signs (12 hours) Temp Pulse Resp BP Pulse Ox 09/19/18 10:30 98.4 F 85 18 170/55 H 95 09/19/18 07:47 97.6 F 70 18 160/98 H 96 09/19/18 07:11 68 20 09/19/18 07:04 95 09/19/18 07:02 68 20 09/19/18 04:00 97.9 F 67 19 156/70 H 96 Weight Weight 144 lb 14.4 oz I&O: 09/18/18 09/19/18 09/20/18 06:59 06:59 06:59 Intake Total 2090 1398 Output Total 250 750 Balance 1840 648 Result Diagrams: 09/19/18 05:08 09/19/18 05:08 Radiology Reviewed by me: Yes EKG Reviewed by me: Yes Phys Exam - Physical Examination Constitutional: NAD HEENT: PERRLA, moist MMs, sclera anicteric Neck: no JVD, supple Respiratory: no wheezing, no rhonchi rales right base Cardiovascular: RRR, no significant murmur, no rub Gastrointestinal: soft, non-tender, no distention, positive bowel sounds Musculoskeletal: no edema, pulses present Neurological: non-focal, normal sensation Lymphatic: no nodes Psychiatric: normal affect Skin: no rash, normal turgor Dx/Plan (1) Community acquired bacterial pneumonia Code(s): J15.9 - UNSPECIFIED BACTERIAL PNEUMONIA Status: Acute (2) Hyponatremia Code(s): E87.1 - HYPO-OSMOLALITY AND HYPONATREMIA Status: Acute Comment: (3) Sepsis Code(s): A41.9 - SEPSIS, UNSPECIFIED ORGANISM Status: Acute Comment: (4) Anemia, normocytic normochromic Code(s): D64.9 - ANEMIA, UNSPECIFIED Status: Chronic (5) Coronary artery disease Code(s): I25.10 - ATHSCL HEART DISEASE OF [place] CORONARY ARTERY W/O ANG PCTRS Status: Chronic Comment: (6) Dyslipidemia Code(s): E78.5 - HYPERLIPIDEMIA, UNSPECIFIED Status: Chronic (7) Hypertension Code(s): I10 - ESSENTIAL (PRIMARY) HYPERTENSION Status: Chronic Qualifiers: Hypertension type: essential hypertension Qualified Code(s): I10 - Essential (primary) hypertension Comment: (8) Hypothyroidism Code(s): E03.9 - HYPOTHYROIDISM, UNSPECIFIED Status: Chronic (9) IBS (irritable bowel syndrome) Status: Chronic (10) PAF (paroxysmal atrial fibrillation) Code(s): I48.0 - PAROXYSMAL ATRIAL FIBRILLATION Status: Chronic - Plan cont current plan of care, continue antibiotics, respiratory therapy * DC IVF * continue current IV antibiotics, rocephin and levaquin * medication reviewed as below * symptomatic treatment. * pulmonary following * overall doing better * will dc tele * transfer to medical Review of Systems - Review of Systems Constitutional: weakness. negative: fever, chills, sweats, malaise, other Eyes: negative: Pain, Vision Change, Conjunctivae Inflammation, Eyelid Inflammation, Redness, Other ENT: negative: Ear Pain, Ear Discharge, Nose Pain, Nose Discharge, Nose Congestion, Mouth Pain, Mouth Swelling, Throat Pain, Throat Swelling, Other Respiratory: Cough, Shortness of Breath. negative: Dry, Hemoptysis, SOB with Excertion, Pleuritic Pain, Sputum, Wheezing Cardiovascular: negative: chest pain, palpitations, orthopnea, paroxysmal nocturnal dyspnea, edema, light headedness, other Gastrointestinal: negative: Nausea, Vomiting, Abdominal Pain, Diarrhea, Constipation, Melena, Hematochezia, Other Genitourinary: negative: Dysuria, Frequency, Incontinence, Hematuria, Retention , Other Musculoskeletal: negative: Neck Pain, Shoulder Pain, Arm Pain, Back Pain, Hand Pain, Leg Pain, Foot Pain, Other - Medications/Allergies Allergies/Adverse Reactions: Allergies Allergy/AdvReac Type Severity Reaction Status Date / Time ezetimibe [From Zetia] Allergy Verified 09/16/18 22:07 lactose Allergy Verified 09/16/18 22:07 [id number] Reductase Allergy Verified 09/16/18 22:07 Inhibitor Sulfa (Sulfonamide Allergy Hives Verified 09/16/18 22:07 Antibiotics) Medications: Current Medications Acetaminophen (Tylenol) 650 mg PO Q4H PRN PRN Reason: Headache/Fever/Mild Pain (1-3) Last Admin: 09/19/18 09:52 Dose: 650 mg Acetaminophen (Tylenol) 650 mg [place] Q4H PRN PRN Reason: Headache/Fever/Mild Pain (1-3) Albuterol/Ipratropium (Duoneb) 3 ml NEB [id number] [facility] Last Admin: 09/19/18 07:02 Dose: 3 ml Albuterol/Ipratropium (Duoneb) 3 ml NEB [id number] PRN PRN Reason: SOB &/or Wheezing Artificial Tears (Tears Naturale) 2 drop EA EYE PRN PRN PRN Reason: Dry Eyes Aspirin (Aspirin Chewable) 81 mg PO DAILY [facility] Last Admin: 09/19/18 09:44 Dose: 81 mg Benzonatate (Tessalon) 100 mg PO TIDPRN PRN PRN Reason: Cough Last Admin: 09/18/18 15:59 Dose: 100 mg Bisacodyl (Dulcolax) 10 mg [place] DAILYPRN PRN PRN Reason: Constipation Calcium Carbonate (Tums) 1,000 mg PO Q4H PRN PRN Reason: Heartburn or Indigestion Carvedilol (Coreg) 3.125 mg PO BID-[facility] Last Admin: 09/19/18 09:44 Dose: 3.125 mg Clopidogrel Bisulfate (Plavix) 75 mg PO DAILY [facility] Last Admin: 09/19/18 09:44 Dose: 75 mg Enoxaparin Sodium (Lovenox) 40 mg SC 0900 [facility] Last Admin: 09/19/18 09:45 Dose: 40 mg Guaifenesin (Robitussin Sf) 200 mg PO Q4H PRN PRN Reason: Cough Last Admin: 09/19/18 11:01 Dose: 200 mg Hydralazine HCl (Apresoline) 10 mg SLOW IVP Q4H PRN PRN Reason: SBP > 180 and HR < 70 Ceftriaxone Sodium 2 gm/ (Sodium Chloride) 100 mls @ 200 mls/hr IVPB Q24HR [facility] Last Admin: 09/18/18 20:33 Dose: 100 mls Levofloxacin 750 mg/ Device 150 mls @ 100 mls/hr IVPB Q24HR [facility] Last Admin: 09/18/18 20:36 Dose: 150 mls Sodium Chloride (1/2 Normal Saline) 1,000 mls @ 50 mls/hr IV .Q20H [facility] Last Admin: 09/18/18 16:07 Dose: 1,000 mls Loperamide HCl (Imodium) 2 mg PO PRN PRN PRN Reason: Diarrhea/Loose Stools Loratadine (Claritin) 10 mg PO DAILYPRN PRN PRN Reason: Sinus Symptoms Melatonin (Melatonin) 3 mg PO HS PRN PRN Reason: Insomnia Last Admin: 09/18/18 22:37 Dose: 3 mg Mineral Oil/White Petrolatum (Eucerin Cream) 0 gm TOP BIDPRN PRN PRN Reason: Dry Skin Mirtazapine (Remeron) 7.5 mg PO HS [facility] Last Admin: 09/18/18 20:34 Dose: 7.5 mg Mometasone Furoate/Formoterol Fumar (Dulera 100 Mcg/5 Mcg Inhaler) 2 puff INH BID-RT [facility] Last Admin: 09/19/18 07:11 Dose: 2 puff Ondansetron HCl (Zofran Odt) 4 mg PO Q6H PRN PRN Reason: Nausea/Vomiting Ondansetron HCl (Zofran) 4 mg IVP Q6H PRN PRN Reason: Nausea/Vomiting Pantoprazole Sodium (Protonix) 40 mg PO DAILY [facility] Last Admin: 09/19/18 09:45 Dose: 40 mg Polyethylene Glycol (Miralax) 17 gm PO DAILY [facility] Last Admin: 09/19/18 09:46 Dose: Not Given Prednisone (Prednisone) 20 mg PO QAM-[facility] Last Admin: 09/19/18 09:44 Dose: 20 mg Senna/Docusate Sodium (Senokot S) 2 tab PO BID PRN PRN Reason: Constipation Sodium Chloride (Flush - Normal Saline) 10 ml IVF Q12HR [facility] Last Admin: 09/19/18 09:46 Dose: Not Given Sodium Chloride (Flush - Normal Saline) 10 ml IVF PRN PRN PRN Reason: Saline Flush Sodium Chloride ([place] Nasal [place] 0.65%) 0 ml EA NARE TID PRN PRN Reason: Nasal Congestion Tamsulosin HCl (Flomax) 0.4 mg PO DAILY [facility] Last Admin: 09/19/18 09:44 Dose: 0.4 mg Temazepam (Restoril) 15 mg PO HSPRN PRN PRN Reason: Insomnia Throat Lozenges (Cepastat Lozenges) 1 virgil PO Q2H PRN PRN Reason: Sore Throat Thyroid ([place] Thyroid) 180 mg PO DAILY [facility] Last Admin: 09/19/18 09:44 Dose: 180 mg Ursodiol (Actigal) 300 mg PO TID [facility] Last Admin: 09/19/18 09:44 Dose: 300 mg
[2018-09-19] MEDS: Sodium Chloride 0.45% 1,000 ML IV SCH (12:39)
[2018-09-19] MEDS: cefTRIAXone\\ROCEPHIN 2 GM in Sodium Chloride 0.9% 100 ML IVPB SCH (19:32)
[2018-09-19] MEDS: Temazepam 15 MG CAP PO PRN (21:38)
[2018-09-19] MEDS: Mirtazapine 15 MG TAB PO SCH (21:38)
[2018-09-20] MEDS: Mometasone/Formoterol 120 PUFF INHALER INH SCH ×2 (07:22→18:25)
[2018-09-20] MEDS: Aspirin Chewable 81 MG TAB PO SCH (08:07)
[2018-09-20] MEDS: Ursodiol 300 MG CAP PO SCH ×3 (08:07→21:05)
[2018-09-20] MEDS: predniSONE 20 MG TAB PO SCH (08:07)
[2018-09-20] MEDS: Polyethylene Glycol 3350 17 GM Packet PO SCH (08:07)
[2018-09-20] MEDS: Tamsulosin HCl 0.4 MG CAP PO SCH (08:07)
[2018-09-20] MEDS: Enoxaparin Sodium 40 MG/0.4 ML SYRINGE SC SCH (08:07)
[2018-09-20] MEDS: Carvedilol 3.125 MG TAB PO SCH ×2 (08:07→17:23)
[2018-09-20] MEDS: Clopidogrel Bisulfate 75 MG TAB PO SCH (08:07)
[2018-09-20] MEDS: Acetaminophen 325 MG TAB PO PRN ×3 (08:12→21:13)
--- NOTE | 2018-09-20 13:39 | PDOC.PN ---
- Subjective Encounter Start Date: 09/20/18 Encounter Start Time: 09:45 pt has cough, she is very weak, no fever Patient seen and examined. No overnight events - Objective Resuscitation Status - Order Detail: 09/16/18 18:59 Resuscitation Status Routine Resuscitation Status: FULL: Full Resuscitation Discussed with: Patient MAR Reviewed: Yes Vital Signs & Weight: Vital Signs (12 hours) Temp Pulse Resp BP BP Pulse Ox 09/20/18 11:35 97.6 F 78 20 129/69 97 09/20/18 08:00 92 L 09/20/18 07:37 97.9 F 78 22 H 181/74 H 92 L 09/20/18 07:22 74 32 H 94 L 09/20/18 07:06 94 L 09/20/18 07:00 74 32 H 94 L 09/20/18 03:49 97.4 F L 76 20 148/80 H 93 L Weight Weight 144 lb 14.4 oz I&O: 09/19/18 09/20/18 09/21/18 06:59 06:59 06:59 Intake Total 1398 320 Output Total 750 510 Balance 648 -190 Result Diagrams: 09/19/18 05:08 09/19/18 05:08 Phys Exam - Physical Examination Constitutional: NAD HEENT: PERRLA, moist MMs, sclera anicteric Neck: no JVD, supple Respiratory: no wheezing, no rhonchi scattered rales Cardiovascular: RRR, no significant murmur, no rub Gastrointestinal: soft, non-tender, no distention, positive bowel sounds Musculoskeletal: no edema, pulses present Neurological: non-focal, normal sensation Lymphatic: no nodes Psychiatric: normal affect Skin: no rash, normal turgor Dx/Plan (1) Community acquired bacterial pneumonia Code(s): J15.9 - UNSPECIFIED BACTERIAL PNEUMONIA Status: Acute (2) Hyponatremia Code(s): E87.1 - HYPO-OSMOLALITY AND HYPONATREMIA Status: Acute Comment: (3) Sepsis Code(s): A41.9 - SEPSIS, UNSPECIFIED ORGANISM Status: Acute Comment: (4) Anemia, normocytic normochromic Code(s): D64.9 - ANEMIA, UNSPECIFIED Status: Chronic (5) Coronary artery disease Code(s): I25.10 - ATHSCL HEART DISEASE OF [place] CORONARY ARTERY W/O ANG PCTRS Status: Chronic Comment: (6) Dyslipidemia Code(s): E78.5 - HYPERLIPIDEMIA, UNSPECIFIED Status: Chronic (7) Hypertension Code(s): I10 - ESSENTIAL (PRIMARY) HYPERTENSION Status: Chronic Qualifiers: Hypertension type: essential hypertension Qualified Code(s): I10 - Essential (primary) hypertension Comment: (8) Hypothyroidism Code(s): E03.9 - HYPOTHYROIDISM, UNSPECIFIED Status: Chronic (9) IBS (irritable bowel syndrome) Status: Chronic (10) PAF (paroxysmal atrial fibrillation) Code(s): I48.0 - PAROXYSMAL ATRIAL FIBRILLATION Status: Chronic - Plan cont current plan of care, continue antibiotics, respiratory therapy * continue rocephin and levaquin * medication reviewed as below * symptomatic treatment * follow sputum culture result. Review of Systems - Review of Systems ENT: negative: Ear Pain, Ear Discharge, Nose Pain, Nose Discharge, Nose Congestion, Mouth Pain, Mouth Swelling, Throat Pain, Throat Swelling, Other Respiratory: Cough, Sputum. negative: Dry, Shortness of Breath, Hemoptysis, SOB with Excertion, Pleuritic Pain, Wheezing Cardiovascular: negative: chest pain, palpitations, orthopnea, paroxysmal nocturnal dyspnea, edema, light headedness, other Gastrointestinal: negative: Nausea, Vomiting, Abdominal Pain, Diarrhea, Constipation, Melena, Hematochezia, Other Genitourinary: negative: Dysuria, Frequency, Incontinence, Hematuria, Retention , Other Musculoskeletal: negative: Neck Pain, Shoulder Pain, Arm Pain, Back Pain, Hand Pain, Leg Pain, Foot Pain, Other Skin: negative: Rash, Lesions, Herminio, Bruising, Other - Medications/Allergies Allergies/Adverse Reactions: Allergies Allergy/AdvReac Type Severity Reaction Status Date / Time ezetimibe [From Zetia] Allergy Verified 09/16/18 22:07 lactose Allergy Verified 09/16/18 22:07 [id number]-[id number]-Uqr Reductase Allergy Verified 09/16/18 22:07 Inhibitor Sulfa (Sulfonamide Allergy Hives Verified 09/16/18 22:07 Antibiotics) Medications: Current Medications Acetaminophen (Tylenol) 650 mg PO Q4H PRN PRN Reason: Headache/Fever/Mild Pain (1-3) Last Admin: 09/20/18 08:12 Dose: 650 mg Albuterol/Ipratropium (Duoneb) 3 ml NEB [id number] Last Admin: 09/20/18 07:00 Dose: 3 ml Albuterol/Ipratropium (Duoneb) 3 ml NEB [id number] PRN PRN Reason: SOB &/or Wheezing Artificial Tears (Tears Naturale) 2 drop EA EYE PRN PRN PRN Reason: Dry Eyes Aspirin (Aspirin Chewable) [address] [facility] Last Admin: 09/20/18 08:07 Dose: 81 mg Benzonatate (Tessalon) 100 mg PO TIDPRN PRN PRN Reason: Cough Last Admin: 09/18/18 15:59 Dose: 100 mg Bisacodyl (Dulcolax) 10 mg [place] DAILYPRN PRN PRN Reason: Constipation Calcium Carbonate (Tums) 1,000 mg PO Q4H PRN PRN Reason: Heartburn or Indigestion Carvedilol (Coreg) 3.125 mg PO BID-[facility] Last Admin: 09/20/18 08:07 Dose: 3.125 mg Clopidogrel Bisulfate (Plavix) [address] [facility] Last Admin: 09/20/18 08:07 Dose: 75 mg Enoxaparin Sodium (Lovenox) [address] [facility] Last Admin: 09/20/18 08:07 Dose: 40 mg Guaifenesin (Robitussin Sf) 200 mg PO Q4H PRN PRN Reason: Cough Last Admin: 09/19/18 11:01 Dose: 200 mg Hydralazine HCl (Apresoline) 10 mg SLOW IVP Q4H PRN PRN Reason: SBP > 180 and HR < 70 Ceftriaxone Sodium 2 gm/ (Sodium Chloride) 100 mls @ 200 mls/hr IVPB Q24HR [facility] Last Admin: 09/19/18 19:32 Dose: 100 mls Levofloxacin 750 mg/ Device 150 mls @ 100 mls/hr IVPB Q24HR [facility] Last Admin: 09/19/18 21:34 Dose: 150 mls Loperamide HCl (Imodium) 2 mg PO PRN PRN PRN Reason: Diarrhea/Loose Stools Loratadine (Claritin) 10 mg PO DAILYPRN PRN PRN Reason: Sinus Symptoms Melatonin (Melatonin) 3 mg PO HS PRN PRN Reason: Insomnia Last Admin: 09/18/18 22:37 Dose: 3 mg Mineral Oil/White Petrolatum (Eucerin Cream) 0 gm TOP BIDPRN PRN PRN Reason: Dry Skin Mirtazapine (Remeron) 7.[address] [facility] Last Admin: 09/19/18 21:38 Dose: 7.5 mg Mometasone Furoate/Formoterol Fumar (Dulera 100 Mcg/5 Mcg Inhaler) 2 puff INH BID-RT [facility] Last Admin: 09/20/18 07:22 Dose: 2 puff Ondansetron HCl (Zofran Odt) 4 mg PO Q6H PRN PRN Reason: Nausea/Vomiting Ondansetron HCl (Zofran) 4 mg IVP Q6H PRN PRN Reason: Nausea/Vomiting Pantoprazole Sodium (Protonix) [address] [facility] Last Admin: 09/20/18 08:07 Dose: 40 mg Polyethylene Glycol (Miralax) [address] [facility] Last Admin: 09/20/18 08:07 Dose: 17 gm Prednisone (Prednisone) 20 mg PO QAM-WM [facility] Last Admin: 09/20/18 08:07 Dose: 20 mg Senna/Docusate Sodium (Senokot S) 2 tab PO BID PRN PRN Reason: Constipation Sodium Chloride (Flush - Normal Saline) [address] [facility] Last Admin: 09/20/18 08:08 Dose: 10 ml Sodium Chloride (Flush - Normal Saline) 10 ml IVF PRN PRN PRN Reason: Saline Flush Sodium Chloride ([place] Nasal [place] 0.65%) 0 ml EA NARE TID PRN PRN Reason: Nasal Congestion Tamsulosin HCl (Flomax) 0.[address] [facility] Last Admin: 09/20/18 08:07 Dose: 0.4 mg Temazepam (Restoril) 15 mg PO HSPRN PRN PRN Reason: Insomnia Last Admin: 09/19/18 21:38 Dose: 15 mg Throat Lozenges (Cepastat Lozenges) 1 virgil PO Q2H PRN PRN Reason: Sore Throat Thyroid ([place] Thyroid) [address] [facility] Last Admin: 09/20/18 11:44 Dose: 180 mg Ursodiol (Actigal) [address] [facility] Last Admin: 09/20/18 08:07 Dose: 300 mg
[2018-09-20] MEDS: Diabetic Tussin 200 MG/10 ML UDCUP PO PRN (13:57)
--- NOTE | 2018-09-20 17:25 | PRG ---
DATE OF SERVICE: 09/20/2018 SUBJECTIVE: Sruthi was examined, in which she was walking in the [place]. She is in no distress. OBJECTIVE: VITAL SIGNS: She is afebrile. Heart rate 78, respiratory rate is 20, oximetry is 97% on 2 L, and blood pressure 129/69. Intake and output was -520 showing a 320 mL recorded in yesterday. LUNGS: Remarkable for mild rhonchi bilaterally. HEART: Regular rhythm. ABDOMEN: Soft. MICROBIOLOGY DATA: Micro is remarkable for negative AFB smears on sputum. There is a gram-negative renetta in her sputum. LABORATORY DATA: No new lab today. IMPRESSION: 1. Bronchiectasis. 2. Pneumonia. 3. Possible aspiration. 4. Deconditioning. 5. Chronic obstructive pulmonary disease. PLAN: Continue supportive care. She appears to be clinically improving. She needs physical therapy more than anything. We will await sensitivities. Job ID: [id number]
[2018-09-20] MEDS: cefTRIAXone\\ROCEPHIN 2 GM in Sodium Chloride 0.9% 100 ML IVPB SCH (20:04)
[2018-09-20] MEDS: Mirtazapine 15 MG TAB PO SCH (21:06)
[2018-09-20] MEDS: Temazepam 15 MG CAP PO PRN (21:07)
[2018-09-21] MEDS: Melatonin 3 MG TAB PO PRN ×2 (03:57→23:56)
[2018-09-21] MEDS: Acetaminophen 325 MG TAB PO PRN ×3 (03:57→20:42)
[2018-09-21] MEDS: Benzonatate 100 MG CAP PO PRN ×2 (04:00→11:33)
[2018-09-21] MEDS: Mometasone/Formoterol 120 PUFF INHALER INH SCH ×2 (07:28→18:41)
[2018-09-21] MEDS: Tamsulosin HCl 0.4 MG CAP PO SCH (08:14)
[2018-09-21] MEDS: predniSONE 20 MG TAB PO SCH (08:14)
[2018-09-21] MEDS: Carvedilol 3.125 MG TAB PO SCH ×2 (08:14→17:30)
[2018-09-21] MEDS: Clopidogrel Bisulfate 75 MG TAB PO SCH (08:14)
[2018-09-21] MEDS: Aspirin Chewable 81 MG TAB PO SCH (08:15)
[2018-09-21] MEDS: Polyethylene Glycol 3350 17 GM Packet PO SCH (08:15)
[2018-09-21] MEDS: Enoxaparin Sodium 40 MG/0.4 ML SYRINGE SC SCH (08:15)
[2018-09-21] MEDS: Ursodiol 300 MG CAP PO SCH ×3 (08:16→20:41)
[2018-09-21] MEDS: Diabetic Tussin 200 MG/10 ML UDCUP PO PRN (08:34)
--- NOTE | 2018-09-21 12:05 | PDOC.PN ---
- Subjective Encounter Start Date: 09/21/18 Encounter Start Time: 09:00 Patient seen and examined. No new complaints. No overnight events - Objective Resuscitation Status - Order Detail: 09/16/18 18:59 Resuscitation Status Routine Resuscitation Status: FULL: Full Resuscitation Discussed with: Patient GENTRY Reviewed: Yes Vital Signs & Weight: Vital Signs (12 hours) Temp Pulse Resp BP BP Pulse Ox 09/21/18 08:34 93 L 09/21/18 08:31 73 180/74 H 09/21/18 08:00 97.3 F L 73 16 180/74 H 93 L 09/21/18 07:28 67 20 97 09/21/18 07:12 97 09/21/18 07:08 67 20 97 09/21/18 00:46 61 14 95 Weight Weight 144 lb 14.4 oz I&O: 09/20/18 09/21/18 09/22/18 06:59 06:59 06:59 Intake Total 320 360 Output Total 510 1600 Balance -190 -1240 Result Diagrams: 09/19/18 05:08 09/19/18 05:08 Additional Labs: Accuchecks 09/20/18 20:43 POC Glucose 149 H Phys Exam - Physical Examination Constitutional: NAD HEENT: PERRLA, moist MMs, sclera anicteric Neck: no JVD, supple Respiratory: no wheezing, no rhonchi scattered rales Cardiovascular: RRR, no significant murmur, no rub Gastrointestinal: soft, non-tender, no distention, positive bowel sounds Musculoskeletal: no edema, pulses present Neurological: non-focal Psychiatric: normal affect Skin: no rash, normal turgor Dx/Plan (1) Community acquired bacterial pneumonia Code(s): J15.9 - UNSPECIFIED BACTERIAL PNEUMONIA Status: Acute (2) Hyponatremia Code(s): E87.1 - HYPO-OSMOLALITY AND HYPONATREMIA Status: Acute Comment: (3) Sepsis Code(s): A41.9 - SEPSIS, UNSPECIFIED ORGANISM Status: Acute Comment: (4) Anemia, normocytic normochromic Code(s): D64.9 - ANEMIA, UNSPECIFIED Status: Chronic (5) Coronary artery disease Code(s): I25.10 - ATHSCL HEART DISEASE OF [place] CORONARY ARTERY W/O ANG PCTRS Status: Chronic Comment: (6) Dyslipidemia Code(s): E78.5 - HYPERLIPIDEMIA, UNSPECIFIED Status: Chronic (7) Hypertension Code(s): I10 - ESSENTIAL (PRIMARY) HYPERTENSION Status: Chronic Qualifiers: Hypertension type: essential hypertension Qualified Code(s): I10 - Essential (primary) hypertension Comment: (8) Hypothyroidism Code(s): E03.9 - HYPOTHYROIDISM, UNSPECIFIED Status: Chronic (9) IBS (irritable bowel syndrome) Status: Chronic (10) PAF (paroxysmal atrial fibrillation) Code(s): I48.0 - PAROXYSMAL ATRIAL FIBRILLATION Status: Chronic - Plan cont current plan of care, continue antibiotics, respiratory therapy * medication reviewed as below * symptomatic treatment * continue current antibiotics * follow culture result * expecting discharge to s[facility] in 24-48 hours * continue PT. Review of Systems - Review of Systems Constitutional: weakness. negative: fever, chills, sweats, malaise, other ENT: negative: Ear Pain, Ear Discharge, Nose Pain, Nose Discharge, Nose Congestion, Mouth Pain, Mouth Swelling, Throat Pain, Throat Swelling, Other Respiratory: Cough. negative: Dry, Shortness of Breath, Hemoptysis, SOB with Excertion, Pleuritic Pain, Sputum, Wheezing Cardiovascular: negative: chest pain, palpitations, orthopnea, paroxysmal nocturnal dyspnea, edema, light headedness, other Gastrointestinal: negative: Nausea, Vomiting, Abdominal Pain, Diarrhea, Constipation, Melena, Hematochezia, Other Genitourinary: negative: Dysuria, Frequency, Incontinence, Hematuria, Retention , Other Musculoskeletal: negative: Neck Pain, Shoulder Pain, Arm Pain, Back Pain, Hand Pain, Leg Pain, Foot Pain, Other - Medications/Allergies Allergies/Adverse Reactions: Allergies Allergy/AdvReac Type Severity Reaction Status Date / Time ezetimibe [From Zetia] Allergy Verified 09/16/18 22:07 lactose Allergy Verified 09/16/18 22:07 Gmecgbz-Eyk-And Reductase Allergy Verified 09/16/18 22:07 Inhibitor Sulfa (Sulfonamide Allergy Hives Verified 09/16/18 22:07 Antibiotics) Medications: Current Medications Acetaminophen (Tylenol) 650 mg PO Q4H PRN PRN Reason: Headache/Fever/Mild Pain (1-3) Last Admin: 09/21/18 03:57 Dose: 650 mg Albuterol/Ipratropium (Duoneb) 3 ml NEB [id number] Last Admin: 09/21/18 12:03 Dose: 3 ml Albuterol/Ipratropium (Duoneb) 3 ml NEB [id number] PRN PRN Reason: SOB &/or Wheezing Artificial Tears (Tears Naturale) 2 drop EA EYE PRN PRN PRN Reason: Dry Eyes Aspirin (Aspirin Chewable) 81 mg PO DAILY [facility] Last Admin: 09/21/18 08:15 Dose: 81 mg Benzonatate (Tessalon) 100 mg PO TIDPRN PRN PRN Reason: Cough Last Admin: 09/21/18 11:33 Dose: 100 mg Bisacodyl (Dulcolax) 10 mg [place] DAILYPRN PRN PRN Reason: Constipation Calcium Carbonate (Tums) 1,000 mg PO Q4H PRN PRN Reason: Heartburn or Indigestion Carvedilol (Coreg) 3.125 mg PO BID-[facility] Last Admin: 09/21/18 08:14 Dose: 3.125 mg Clopidogrel Bisulfate (Plavix) 75 mg PO DAILY [facility] Last Admin: 09/21/18 08:14 Dose: 75 mg Enoxaparin Sodium (Lovenox) 40 mg SC 0900 [facility] Last Admin: 09/21/18 08:15 Dose: 40 mg Guaifenesin (Robitussin Sf) 200 mg PO Q4H PRN PRN Reason: Cough Last Admin: 09/21/18 08:34 Dose: 200 mg Hydralazine HCl (Apresoline) 10 mg SLOW IVP Q4H PRN PRN Reason: SBP > 180 and HR < 70 Last Admin: 09/21/18 08:31 Dose: 10 mg Ceftriaxone Sodium 2 gm/ (Sodium Chloride) 100 mls @ 200 mls/hr IVPB Q24HR [facility] Last Admin: 09/20/18 20:04 Dose: 100 mls Levofloxacin (Levaquin) 750 mg PO 2200 [facility] Last Admin: 09/20/18 21:06 Dose: 750 mg Loperamide HCl (Imodium) 2 mg PO PRN PRN PRN Reason: Diarrhea/Loose Stools Loratadine (Claritin) 10 mg PO DAILYPRN PRN PRN Reason: Sinus Symptoms Melatonin (Melatonin) 3 mg PO HS PRN PRN Reason: Insomnia Last Admin: 09/21/18 03:57 Dose: 3 mg Mineral Oil/White Petrolatum (Eucerin Cream) 0 gm TOP BIDPRN PRN PRN Reason: Dry Skin Mirtazapine (Remeron) 7.5 mg PO HS [facility] Last Admin: 09/20/18 21:06 Dose: 7.5 mg Mometasone Furoate/Formoterol Fumar (Dulera 100 Mcg/5 Mcg Inhaler) 2 puff INH BID-RT [facility] Last Admin: 09/21/18 07:28 Dose: 2 puff Ondansetron HCl (Zofran Odt) 4 mg PO Q6H PRN PRN Reason: Nausea/Vomiting Ondansetron HCl (Zofran) 4 mg IVP Q6H PRN PRN Reason: Nausea/Vomiting Pantoprazole Sodium (Protonix) 40 mg PO DAILY [facility] Last Admin: 09/21/18 08:14 Dose: 40 mg Polyethylene Glycol (Miralax) 17 gm PO DAILY [facility] Last Admin: 09/21/18 08:15 Dose: 17 gm Prednisone (Prednisone) 20 mg PO QAM-WM [facility] Last Admin: 09/21/18 08:14 Dose: 20 mg Senna/Docusate Sodium (Senokot S) 2 tab PO BID PRN PRN Reason: Constipation Sodium Chloride (Flush - Normal Saline) 10 ml IVF Q12HR [facility] Last Admin: 09/21/18 08:16 Dose: 10 ml Sodium Chloride (Flush - Normal Saline) 10 ml IVF PRN PRN PRN Reason: Saline Flush Sodium Chloride ([place] Nasal [place] 0.65%) 0 ml EA NARE TID PRN PRN Reason: Nasal Congestion Tamsulosin HCl (Flomax) 0.4 mg PO DAILY [facility] Last Admin: 09/21/18 08:14 Dose: 0.4 mg Temazepam (Restoril) 15 mg PO HSPRN PRN PRN Reason: Insomnia Last Admin: 09/20/18 21:07 Dose: 15 mg Throat Lozenges (Cepastat Lozenges) 1 virgil PO Q2H PRN PRN Reason: Sore Throat Thyroid ([place] Thyroid) 180 mg PO DAILY [facility] Last Admin: 09/21/18 08:16 Dose: 180 mg Ursodiol (Actigal) 300 mg PO TID [facility] Last Admin: 09/21/18 08:16 Dose: 300 mg
--- NOTE | 2018-09-21 19:04 | PRG ---
DATE OF SERVICE: 09/21/2018 SUBJECTIVE: Charlotte Negro did well overnight. She has no complaints. She is still weak. OBJECTIVE: VITAL SIGNS: She is afebrile. Heart rate 78, respiratory rate 16, oximetry is 96, blood pressure 147/64. Intake and output are -1240 mL. LUNGS: She has rhonchi bilaterally on exam. HEART: Regular rhythm. ABDOMEN: Soft. Two gram-negative rods that have been identified were isolated in her sputum. IMPRESSION: 1. Bronchitis. 2. Bronchiectasis. 3. Pneumonia. 4. Aspiration. 5. Deconditioning. 6. Chronic obstructive pulmonary disease with acute exacerbation. Physical therapy is the biggest issue. She appears to be clinically improving. Continue supportive care. Job ID: [id number]
[2018-09-21] MEDS: cefTRIAXone\\ROCEPHIN 2 GM in Sodium Chloride 0.9% 100 ML IVPB SCH (20:39)
[2018-09-21] MEDS: Mirtazapine 15 MG TAB PO SCH (20:40)
[2018-09-21] MEDS: Temazepam 15 MG CAP PO PRN (20:41)
[2018-09-22] MEDS: Benzonatate 100 MG CAP PO PRN ×3 (00:06→21:03)
[2018-09-22] MEDS: Acetaminophen 325 MG TAB PO PRN ×2 (00:12→21:03)
[2018-09-22] MEDS: Diabetic Tussin 200 MG/10 ML UDCUP PO PRN ×2 (04:24→21:04)
[2018-09-22] MEDS: Mometasone/Formoterol 120 PUFF INHALER INH SCH ×2 (06:42→19:45)
[2018-09-22] MEDS: Enoxaparin Sodium 40 MG/0.4 ML SYRINGE SC SCH (08:48)
[2018-09-22] MEDS: Carvedilol 3.125 MG TAB PO SCH ×2 (08:49→14:57)
[2018-09-22] MEDS: Ursodiol 300 MG CAP PO SCH ×3 (08:49→21:02)
[2018-09-22] MEDS: Aspirin Chewable 81 MG TAB PO SCH (08:49)
[2018-09-22] MEDS: predniSONE 20 MG TAB PO SCH (08:49)
[2018-09-22] MEDS: Clopidogrel Bisulfate 75 MG TAB PO SCH (08:50)
[2018-09-22] MEDS: Polyethylene Glycol 3350 17 GM Packet PO SCH (08:51)
[2018-09-22] MEDS: Tamsulosin HCl 0.4 MG CAP PO SCH (08:52)
--- NOTE | 2018-09-22 09:00 | PRG ---
DATE OF SERVICE: 09/22/2018 SUBJECTIVE: Charlotte Negro is a 78-year-old female. OBJECTIVE: VITAL SIGNS: This morning, sats are 99% on 1 L, respiratory rate 20, temperature 97, pulse was 74, blood pressure 119/73. CHEST: Decreased breath sounds without any wheezing. CARDIAC: Normal S1, S2. No gallops. ABDOMEN: No masses. IMPRESSION: 1. Bilateral bronchopneumonia, gram-negative, so far cultures negative. 2. Severe deconditioning. Baseline chronic obstructive pulmonary disease bronchiectasis. PLAN: Continue PT, supportive care, home medication. P.o. Levaquin. So far acid-fast are negative. Eventually placement. Job ID: [id number]
--- NOTE | 2018-09-22 12:10 | PDOC.PN ---
- Subjective Encounter Start Date: 09/22/18 Encounter Start Time: 08:40 pt is mentally not ready to go to snu today, she is weak, has cough - Objective Resuscitation Status - Order Detail: 09/16/18 18:59 Resuscitation Status Routine Resuscitation Status: FULL: Full Resuscitation Discussed with: Patient GENTRY Reviewed: Yes Vital Signs & Weight: Vital Signs (12 hours) Temp Pulse Resp BP Pulse Ox 09/22/18 07:43 97.8 F 74 20 190/73 H 91 L 09/22/18 06:45 59 L 16 97 09/22/18 06:42 59 L 16 97 Weight Weight 144 lb 14.4 oz I&O: 09/21/18 09/22/18 09/23/18 06:59 06:59 06:59 Intake Total 360 1080 Output Total 1600 1300 Balance -1240 -220 Result Diagrams: 09/19/18 05:08 09/19/18 05:08 Phys Exam - Physical Examination Constitutional: NAD HEENT: PERRLA, moist MMs, sclera anicteric Neck: no JVD, supple Respiratory: no wheezing, no rales, no rhonchi Cardiovascular: RRR, no significant murmur, no rub Gastrointestinal: soft, non-tender, no distention, positive bowel sounds Musculoskeletal: no edema, pulses present Neurological: non-focal, normal sensation Lymphatic: no nodes Psychiatric: normal affect Skin: no rash, normal turgor Dx/Plan (1) Community acquired bacterial pneumonia Code(s): J15.9 - UNSPECIFIED BACTERIAL PNEUMONIA Status: Acute (2) Hyponatremia Code(s): E87.1 - HYPO-OSMOLALITY AND HYPONATREMIA Status: Acute Comment: (3) Sepsis Code(s): A41.9 - SEPSIS, UNSPECIFIED ORGANISM Status: Acute Comment: (4) Anemia, normocytic normochromic Code(s): D64.9 - ANEMIA, UNSPECIFIED Status: Chronic (5) Coronary artery disease Code(s): I25.10 - ATHSCL HEART DISEASE OF [place] CORONARY ARTERY W/O ANG PCTRS Status: Chronic Comment: (6) Dyslipidemia Code(s): E78.5 - HYPERLIPIDEMIA, UNSPECIFIED Status: Chronic (7) Hypertension Code(s): I10 - ESSENTIAL (PRIMARY) HYPERTENSION Status: Chronic Qualifiers: Hypertension type: essential hypertension Qualified Code(s): I10 - Essential (primary) hypertension Comment: (8) Hypothyroidism Code(s): E03.9 - HYPOTHYROIDISM, UNSPECIFIED Status: Chronic (9) IBS (irritable bowel syndrome) Status: Chronic (10) PAF (paroxysmal atrial fibrillation) Code(s): I48.0 - PAROXYSMAL ATRIAL FIBRILLATION Status: Chronic - Plan cont current plan of care, plan discussed w/ family, continue antibiotics, PT/OT , home health care social worker * medication reviewed as below * symptomatic treatment * continue current treatment in hospital * will consider discharge tomorrow per pt request. Review of Systems - Review of Systems Constitutional: weakness. negative: fever, chills, sweats, malaise, other Respiratory: Cough, Shortness of Breath. negative: Dry, Hemoptysis, SOB with Excertion, Pleuritic Pain, Sputum, Wheezing Cardiovascular: negative: chest pain, palpitations, orthopnea, paroxysmal nocturnal dyspnea, edema, light headedness, other Gastrointestinal: negative: Nausea, Vomiting, Abdominal Pain, Diarrhea, Constipation, Melena, Hematochezia, Other Genitourinary: negative: Dysuria, Frequency, Incontinence, Hematuria, Retention , Other Musculoskeletal: negative: Neck Pain, Shoulder Pain, Arm Pain, Back Pain, Hand Pain, Leg Pain, Foot Pain, Other Skin: negative: Rash, Lesions, Herminio, Bruising, Other - Medications/Allergies Allergies/Adverse Reactions: Allergies Allergy/AdvReac Type Severity Reaction Status Date / Time ezetimibe [From Zetia] Allergy Verified 09/16/18 22:07 lactose Allergy Verified 09/16/18 22:07 [id number] Reductase Allergy Verified 09/16/18 22:07 Inhibitor Sulfa (Sulfonamide Allergy Hives Verified 09/16/18 22:07 Antibiotics) Medications: Current Medications Acetaminophen (Tylenol) 650 mg PO Q4H PRN PRN Reason: Headache/Fever/Mild Pain (1-3) Last Admin: 09/22/18 00:12 Dose: 650 mg Albuterol/Ipratropium (Duoneb) 3 ml NEB [id number] Last Admin: 09/22/18 06:45 Dose: 3 ml Albuterol/Ipratropium (Duoneb) 3 ml NEB [id number] PRN PRN Reason: SOB &/or Wheezing Artificial Tears (Tears Naturale) 2 drop EA EYE PRN PRN PRN Reason: Dry Eyes Aspirin (Aspirin Chewable) 81 mg PO DAILY [facility] Last Admin: 09/22/18 08:49 Dose: 81 mg Benzonatate (Tessalon) 100 mg PO TIDPRN PRN PRN Reason: Cough Last Admin: 09/22/18 08:49 Dose: 100 mg Bisacodyl (Dulcolax) 10 mg DC DAILYPRN PRN PRN Reason: Constipation Calcium Carbonate (Tums) 1,000 mg PO Q4H PRN PRN Reason: Heartburn or Indigestion Carvedilol (Coreg) 3.125 mg PO BID-WM [facility] Last Admin: 09/22/18 08:49 Dose: 3.125 mg Clopidogrel Bisulfate (Plavix) 75 mg PO DAILY [facility] Last Admin: 09/22/18 08:50 Dose: 75 mg Enoxaparin Sodium (Lovenox) 40 mg SC 0900 [facility] Last Admin: 09/22/18 08:48 Dose: 40 mg Guaifenesin (Robitussin Sf) 200 mg PO Q4H PRN PRN Reason: Cough Last Admin: 09/22/18 04:24 Dose: 200 mg Hydralazine HCl (Apresoline) 10 mg SLOW IVP Q4H PRN PRN Reason: SBP > 180 and HR < 70 Last Admin: 09/21/18 08:31 Dose: 10 mg Levofloxacin (Levaquin) 750 mg PO 2200 [facility] Last Admin: 09/21/18 21:01 Dose: 750 mg Loperamide HCl (Imodium) 2 mg PO PRN PRN PRN Reason: Diarrhea/Loose Stools Loratadine (Claritin) 10 mg PO DAILYPRN PRN PRN Reason: Sinus Symptoms Melatonin (Melatonin) 3 mg PO HS PRN PRN Reason: Insomnia Last Admin: 09/21/18 23:56 Dose: 3 mg Mineral Oil/White Petrolatum (Eucerin Cream) 0 gm TOP BIDPRN PRN PRN Reason: Dry Skin Mirtazapine (Remeron) 7.5 mg PO HS [facility] Last Admin: 09/21/18 20:40 Dose: 7.5 mg Mometasone Furoate/Formoterol Fumar (Dulera 200 Mcg/5 Mcg Inhaler) 2 puff INH BID-RT [facility] Ondansetron HCl (Zofran Odt) 4 mg PO Q6H PRN PRN Reason: Nausea/Vomiting Ondansetron HCl (Zofran) 4 mg IVP Q6H PRN PRN Reason: Nausea/Vomiting Pantoprazole Sodium (Protonix) 40 mg PO DAILY [facility] Last Admin: 09/22/18 08:51 Dose: 40 mg Polyethylene Glycol (Miralax) 17 gm PO DAILY [facility] Last Admin: 09/22/18 08:51 Dose: 17 gm Prednisone (Prednisone) 20 mg PO QAM-WM [facility] Last Admin: 09/22/18 08:49 Dose: 20 mg Senna/Docusate Sodium (Senokot S) 2 tab PO BID PRN PRN Reason: Constipation Sodium Chloride (Flush - Normal Saline) 10 ml IVF Q12HR [facility] Last Admin: 09/22/18 10:30 Dose: Not Given Sodium Chloride (Flush - Normal Saline) 10 ml IVF PRN PRN PRN Reason: Saline Flush Sodium Chloride ([place] Nasal [place] 0.65%) 0 ml EA NARE TID PRN PRN Reason: Nasal Congestion Tamsulosin HCl (Flomax) 0.4 mg PO DAILY [facility] Last Admin: 09/22/18 08:52 Dose: 0.4 mg Temazepam (Restoril) 15 mg PO HSPRN PRN PRN Reason: Insomnia Last Admin: 09/21/18 20:41 Dose: 15 mg Throat Lozenges (Cepastat Lozenges) 1 virgil PO Q2H PRN PRN Reason: Sore Throat Thyroid ([place] Thyroid) 180 mg PO DAILY [facility] Last Admin: 09/22/18 08:48 Dose: 180 mg Ursodiol (Actigal) 300 mg PO TID [facility] Last Admin: 09/22/18 08:49 Dose: 300 mg
[2018-09-22] MEDS: Mirtazapine 15 MG TAB PO SCH (21:01)
[2018-09-22] MEDS: Temazepam 15 MG CAP PO PRN (21:04)
[2018-09-23] MEDS: Melatonin 3 MG TAB PO PRN (03:12)
[2018-09-23] MEDS: Mometasone/Formoterol 120 PUFF INHALER INH SCH (07:01)
[2018-09-23] MEDS: Enoxaparin Sodium 40 MG/0.4 ML SYRINGE SC SCH (08:50)
--- NOTE | 2018-09-23 08:50 | PRG ---
DATE OF SERVICE: 09/23/2018 SUBJECTIVE: This morning, she is better. Her sputum is growing Klebsiella, which is sensitive to the present antibiotic. She is better and less cough. OBJECTIVE: VITAL SIGNS: Sats are improved 98% on 1 L, respirations 16, pulse 76, temperature 97, and blood pressure 184/87. CHEST: Bilateral rhonchi and crackles. CARDIAC: Normal S1 and S2. No gallops. ABDOMEN: No masses. IMPRESSION: Chronic bronchitis and bronchiectasis with superimposed bilateral bronchopneumonia, gram-negative Klebsiella. She can be transferred back to her [facility]. Continue supportive care, PT. So far, acid-fast stain is negative. Job ID: [id number]
[2018-09-23] MEDS: Polyethylene Glycol 3350 17 GM Packet PO SCH (08:51)
[2018-09-23] MEDS: Diabetic Tussin 200 MG/10 ML UDCUP PO PRN (08:52)
[2018-09-23] MEDS: predniSONE 20 MG TAB PO SCH (08:53)
[2018-09-23] MEDS: Carvedilol 3.125 MG TAB PO SCH (08:53)
[2018-09-23] MEDS: Clopidogrel Bisulfate 75 MG TAB PO SCH (08:53)
[2018-09-23] MEDS: Aspirin Chewable 81 MG TAB PO SCH (08:53)
[2018-09-23] MEDS: Ursodiol 300 MG CAP PO SCH (08:53)
[2018-09-23] MEDS: Tamsulosin HCl 0.4 MG CAP PO SCH (08:54)
[2018-09-23 10:59] VITALS: BP 156/77; TEMP 97.8
--- NOTE | 2018-09-23 11:15 | DIS ---
DATE OF ADMISSION: 09/16/2018 DATE OF DISCHARGE: 09/23/2018 PRIMARY CARE PHYSICIAN: Dr. Ramone Ramirez. DISCHARGE DISPOSITION: senior living. PRIMARY DISCHARGE DIAGNOSES: 1. Community-acquired bacterial pneumonia. 2. Klebsiella and gram-negative renetta pneumonia. 3. Acute exacerbation of bronchiectasis. 4. Sepsis. 5. Hyponatremia. SECONDARY DISCHARGE DIAGNOSES: Paroxysmal atrial fibrillation, irritable bowel syndrome, hypothyroidism, hypertension, dyslipidemia, coronary artery disease, normocytic normochromic anemia. PRIMARY PROCEDURE/OPERATION: None. RADIOLOGICAL INVESTIGATION: Chest x-ray showed multifocal infiltration especially on the right lower lobe chronic changes. SIGNIFICANT LABORATORY DATA: WBC 10.1, hemoglobin 9.0, platelets 375. Sodium 135, creatinine 0.51. TSH 9.36. Urinalysis suggestive of UTI. Blood culture negative. Sputum culture grew Klebsiella and gram-negative renetta influenza negative. DISCHARGE MEDICATIONS: Following our scheduled medication, p.r.n. medication has not listed in following medication. 1. Coreg 3.125 mg p.o. b.i.d. 2. Cetirizine 10 mg daily. 3. Plavix 75 mg p.o. daily. 4. DuoNeb q.6 hourly. 5. Flonase nasal spray daily. 6. Melatonin 3 mg p.o. at bedtime. 7. Remeron 7.5 mg p.o. at bedtime. 8. Dulera two puff inhalation b.i.d. 9. Protonix 20 mg p.o. daily. 10. MiraLAX 17 g p.o. daily. 11. Flomax 0.4 mg daily. 12. [place] Thyroid 180 mg daily. 13. Ursodiol 300 mg t.i.d. 14. Levaquin 750 mg p.o. daily for 7 more days. 15. Prednisone 20 mg p.o. daily for 5 days, then 10 mg p.o. daily for 5 days. CONTRAINDICATION: None. CODE STATUS: Full. INPATIENT INTERNET MARKETING MANAGER: Dr. Ferris was following while in hospital. TEST RESULTS PENDING ON DISCHARGE: None. ALLERGIES: ZETIA, LACTOSE, STATIN. DISCHARGE PLAN: Posthospital, the patient will follow up with primary care physician as well as Dr. Ferris as instructed. HOSPITAL COURSE: A 78-year-old female with above-mentioned medical problem, who was admitted by Dr. Eitan Bhardwaj. Please see his H and P for further details. The patient lives at residential. She was having increasing cough, increasing shortness of breath, and that is why she was brought to ER. In the emergency room, chest x-ray showed worsening of infiltration on the right lower lobe. She does have chronic bronchiectasis, and this patient was having more worsening of bronchiectasis associated with pneumonia. The patient was treated with broad-spectrum antibiotic therapy. We did sputum culture, and based on sputum culture, antibiotic therapy was changed to levofloxacin upon discharge. Pulmonary group was following while in the hospital. She is now back to her baseline level. She has significant physical deconditioning and she will benefit from continuous PT OT at residential. She will get breathing treatment as ordered above. Pulmonary group cleared her for discharge, this patient is at high risk for recurrent admission. The patient is seen and examined at bedside today. REVIEW OF SYSTEMS: Reviewed with her and negative. PHYSICAL EXAMINATION: VITAL SIGNS: Currently, temperature 97.4, pulse 73, respiratory rate 19, saturation 98% on 1 L oxygen, blood pressure 184/87, weight 144 pounds. GENERAL: The patient is currently alert, awake, follows simple commands. No obvious acute distress. HEENT: Head, normocephalic and atraumatic. Eyes; pupils are round, reactive to light. Extraocular muscle intact. ENT, oropharynx within normal limits. Moist mucous membranes. NECK: Supple. LUNGS: Scattered rales noted. CARDIAC: S1 and S2 regular without any murmur. ABDOMEN: Soft and benign. EXTREMITIES: No edema. NEUROLOGIC: Nonfocal examination. CONDITION ON DISCHARGE: Overall, the patient is medically stable for discharge. Job ID: [id number]
== END 2018-09-23 13:07 | DRG 871 ==
LOC: ERS 15:02 → 2NO 19:11 → T4-A 09-19 10:21
PROVIDERS: ADMIT Emergency Medicine; ATTEND Emergency Medicine
DX: A41.9 Sepsis, unspecified organism (principal); J15.0 Pneumonia due to Klebsiella pneumoniae; J15.6 Pneumonia due to other Gram-negative bacteria; J47.0 Bronchiectasis with acute lower respiratory infection; J47.1 Bronchiectasis with (acute) exacerbation; E87.1 Hypo-osmolality and hyponatremia; I48.0 Paroxysmal atrial fibrillation; Z99.81 Dependence on supplemental oxygen; D64.9 Anemia, unspecified; I25.10 Atherosclerotic heart disease of native coronary artery without angina pectoris; E78.5 Hyperlipidemia, unspecified; E03.9 Hypothyroidism, unspecified; K58.9 Irritable bowel syndrome, unspecified; Z88.2 Allergy status to sulfonamides; Z88.8 Allergy status to other drugs, medicaments and biological substances; Z79.02 Long term (current) use of antithrombotics/antiplatelets; Z79.899 Other long term (current) drug therapy; Z95.1 Presence of aortocoronary bypass graft; Z95.5 Presence of coronary angioplasty implant and graft
CPT/HCPCS: 36415; 36416; 71045; 80048; 80053; 81003; 81015; 83605; 84443; 84484; 85025; 87040; 87070; 87077; 87116; 87186; 87205; 87206; 87804; 93005; 94640; 94664; 96365; 96367; J0360; J0696; J1650; J1956; J2543; J3370; J7050; J7620